=== PATIENT | female | born 1945 | race Caucasian/White ===

== ENCOUNTER 2016-06-15 16:39 | Emergency (ER) | payer MEDICARE ==
[2016-06-15 17:44] VITALS: BP 163/94
--- NOTE | 2016-06-15 19:11 | ED ---
GI/ HPI - HPI Summary HPI Summary: 71 female presents with daughter with complaints of urinary frequency, burning and urgency that she has dealt with chronically however has worsened over the past 3 days. Patient also deals with urinary incontinence chronically. Patient suffers from frequent UTI's and is seen by Dr Leone. She states Macrobid is usually the medication that seems to help clear the infection. She tried making an appointment with Dr Leone today however she was unable to be seen so was told to come here. Denies any visualized blood in urine or stool. Denies nausea , fever/chills, flank pain, abdominal pain and headache. Has taken Azo OTC tablets for pain which have helped her. Has been drinking plenty of fluids. Denies vaginal symptoms and discharge. States she was unable to shower frequently due to dry hair and skin and a broken shower head and believes it may have caused this. PMHx significant for UTI's, kidney problems and rheumatoid arthritis. - History of Current Complaint Chief Complaint: EDUrogenitalProblems Time Seen by Provider: 06/15/16 18:33 Stated Complaint: RECURRENT UTI'S-SENT BY DR STEPHEN Hx Obtained From: Patient, Family/Model Maker Scale - daughter Onset/Duration: Started Days Ago, Worse Since Timing: Constant Severity: Moderate Current Severity: Moderate Pain Intensity: 0 Pain Characteristics: Burning Associated Signs and Symptoms: Positive: UTI Symptoms. Negative: Nausea, Vomiting, Blood w/Stool, Fever, Hematuria, Flank Pain, Lightheadedness Aggravating Factor(s): Voiding, Urination Alleviating Factor(s): OTC Analgesics - Allergy/Home Medications Allergies/Adverse Reactions: Allergies Allergy/AdvReac Type Severity Reaction Status Date / Time Acetaminophen [From Vicodin] Allergy Unknown Verified 04/26/15 13:52 Reaction Details Amoxicillin [From Augmentin] Allergy Unknown Verified 04/26/15 13:52 Reaction Details Carbamazepine [From Tegretol] Allergy Unknown Verified 04/26/15 13:52 Reaction Details Clavulanic Acid Allergy Unknown Verified 04/26/15 13:52 [From Augmentin] Reaction Details Erythromycin Allergy Unknown Verified 04/26/15 13:52 Reaction Details Fluphenazine [From Prolixin] Allergy Unknown Verified 04/26/15 13:52 Reaction Details Haloperidol Allergy Unknown Verified 04/26/15 13:52 Reaction Details Hydrocodone [From Vicodin] Allergy Unknown Verified 04/26/15 13:52 Reaction Details Lamotrigine [From Lamictal] Allergy Unknown Verified 04/26/15 13:52 Reaction Details Morphine Allergy Unknown Verified 04/26/15 13:52 Reaction Details Oxcarbazepine Allergy Unknown Verified 04/26/15 13:52 [From Trileptal] Reaction Details Penicillins Allergy Unknown Verified 04/26/15 13:52 Reaction Details Phenytoin [From Dilantin] Allergy Unknown Verified 04/26/15 13:52 Reaction Details Quetiapine [From Seroquel] Allergy See Comment Verified 04/26/15 13:52 Sulfamethoxazole Allergy Unknown Verified 04/26/15 13:52 w/Trimethoprim Reaction [From Bactrim] Details Thiothixene [From Navane] Allergy Unknown Verified 04/26/15 13:52 Reaction Details Cortisone Allergy Unknown Unknown Uncoded 04/26/15 13:52 Reaction Details [place] Allergy Vomiting Uncoded 04/26/15 13:52 Phenytoin Allergy Unknown Uncoded 04/26/15 13:52 Reaction Details PMH/Surg Hx/FS Hx/Imm Hx Endocrine/Hematology History: Reports: Hx Thyroid Disease - Hypothyroid Denies: Hx Diabetes Cardiovascular History: Reports: Hx Hypertension - ON MEDS Denies: Hx Pacemaker/ICD Respiratory History: Denies: Hx Asthma, Hx Chronic Obstructive Pulmonary Disease (COPD) GI History: Denies: Hx Ulcer History: Reports: Other Problems/Disorders - urinary tract infections Denies: Hx Dialysis, Hx Renal Disease Sensory History: Denies: Hx Hearing Aid Psychiatric History: Denies: Hx Panic Disorder - Surgical History Surgery Procedure, Year, and Place: Left hip replacement 2003, Bilateral knee replacements 2006; TUBAL LIGATION Infectious Disease History: No Infectious Disease History: Denies: Hx Hepatitis, Hx Human Immunodeficiency Virus (HIV), History Other Infectious Disease, Traveled Outside the [place] in Last 30 Days - Family History Known Family History: Positive: Cardiac Disease - Social History Alcohol Use: None Substance Use Type: Reports: None Smoking Status (MU): Never Smoked Tobacco Review of Systems Constitutional: Negative Cardiovascular: Negative Respiratory: Negative Gastrointestinal: Negative Positive: burning, dysuria, frequency, incontinence, pain, urgency Musculoskeletal: Negative Skin: Negative Neurological: Negative Psychological: Normal All Other Systems Reviewed And Are Negative: Yes Physical Exam Triage Information Reviewed: Yes Vital Signs On Initial Exam: Initial Vitals Temp Pulse Resp BP Pulse Ox 96.9 F 88 16 155/94 97 06/15/16 16:40 06/15/16 16:40 06/15/16 16:40 06/15/16 16:40 06/15/16 16:40 Told by patient and daughter BP is usually elevated when at doctors office, re- checked and in a normal range. compared to previous. afebrile and non-tachy. Vital Signs Reviewed: Yes Appearance: Positive: Well-Appearing, No Pain Distress, Well-Nourished Skin: Positive: Warm, Skin Color Reflects Adequate Perfusion, Dry Head/Face: Positive: Normal Head/Face Inspection Eyes: Positive: Normal ENT: Positive: Normal ENT inspection, Hearing grossly normal Neck: Positive: Supple, Nontender, No Lymphadenopathy Respiratory/Lung Sounds: Positive: Clear to Auscultation, Breath Sounds Present. Negative: Rales, Rhonchi, Wheezes Cardiovascular: Positive: Normal, RRR, Pulses are Symmetrical in both Upper and Lower Extremities Abdomen Description: Positive: Nontender, No Organomegaly, Soft. Negative: CVA Tenderness (R), CVA Tenderness (L), Distended, Guarding, McBurney's Point Tenderness, Peritoneal Signs Bowel Sounds: Positive: Present Pelvic Exam: Positive: external exam normal - per patient Musculoskeletal: Positive: Normal, Strength/ROM Intact Neurological: Positive: Normal, Sensory/Motor Intact, Alert, Oriented to Person Place, Time Psychiatric: Positive: Normal, Affect/Mood Appropriate Diagnostics - Vital Signs Vital Signs Temp Pulse Resp BP Pulse Ox 06/15/16 17:44 97.8 F 76 16 163/94 99 06/15/16 16:40 96.9 F 88 16 155/94 97 - Laboratory Lab Statement: Any lab studies that have been ordered have been reviewed, and results considered in the medical decision making process. GIGU Course/Dx - Course Course Of Treatment: urinalysis obtained and positive for urinary tract infection. due to PE findings, length of symptoms, chronic history, and normal vital signs patient will be treated for a UTI at this time. does not appear to be pyelonephritis, no further labs were drawn at this time. educated on culture results and if need be the antibiotic will be changed. however given macrobid and pyridium in ED and sent script to take at home. aware of worsening signs and symptoms to watch out for, such as progressing to pyelonephritis. told to keep appointment with dr leone in 2-3weeks to discuss current infection as well as pcp. ibuprofen/tylenol for pain. - Diagnoses Differential Diagnoses - Female: Cystitis, Pyelonephritis, Urinary Tract Infection Provider Diagnoses: History of chronic urinary tract infection, Urinary tract infection Discharge - Discharge Plan Condition: Stable Disposition: HOME Prescriptions: Nitrofurantoin Monohyd Macro [Macrobid] 100 mg PO BID #20 cap Phenazopyridine TAB* [Pyridium 100 mg TAB*] 100 mg PO TID #9 tab Patient Education Materials: Urinary Tract Infection in Women (ED) Referrals: Luciano Barillas MD [Primary Care Provider] - Additional Instructions: Take prescribed antibiotic and pain medication as directed. Recommend taking probiotics in between doses to replenish normal marino. Urine will be cultured and the results will be in the next 3 days to determine if your antibiotic needs to be change or kept the same. Be sure to make an appointment with both your PCP and urologist Dr Leone, for treatment of chronic urologic problems. Continue drinking plenty of fluids.
[2016-06-15 19:24] LABS: Urine Bacteria 1+ (Absent); Urine Bilirubin Negative (Negative); Urine Glucose Negative (Negative); Urine Nitrite Positive (Negative)
[2016-06-15] MEDS ORDERED: Nitrofurantoin Macrocrystals* 100 MG CAP PO ONE (19:30)
[2016-06-15] MEDS ORDERED: Phenazopyridine TAB* 100 MG PO ONE (19:31)
== END 2016-06-15 19:39 | disposition home or self-care (01) ==
LOC: ED 16:39
DX: N39.0 Urinary tract infection, site not specified (principal)
CPT/HCPCS: 81003; 81015; 87077; 87086; 87186; 99281; A9270-GY

== ENCOUNTER 2016-11-12 15:09 | Emergency (ER) | payer MEDICARE ==
[2016-11-12 17:03] VITALS: BP 185/106
--- NOTE | 2016-11-12 17:37 | UC ---
Ariadna Wild Edward, scribed for Jeff Ryan MD on 11/12/16 at 1731 . Complaint Female HPI - HPI Summary HPI Summary: 71 y/o female presents to [facility] c/o gradual onset cramping, burning with urination, and odorous urine lasting one week. The symptoms are not aggravated or alleviated by anything. Denies ABD pain, fevers/chills. PMHx UTI's. - History Of Current Complaint Chief Complaint: UCGU Stated Complaint: POSSIBLE UTI Time Seen by Provider: 11/12/16 17:29 Hx Obtained From: Patient Onset/Duration: Lasting Weeks - 1 week, Still Present Character: Burning Aggravating Factor(s): Urination Associated Signs And Symptoms: Negative: Fever - Allergies/Home Medications Allergies/Adverse Reactions: Allergies Allergy/AdvReac Type Severity Reaction Status Date / Time Acetaminophen [From Vicodin] Allergy Unknown Verified 11/12/16 17:01 Reaction Details Amoxicillin [From Augmentin] Allergy Unknown Verified 11/12/16 17:01 Reaction Details Carbamazepine [From Tegretol] Allergy Unknown Verified 11/12/16 17:01 Reaction Details Clavulanic Acid Allergy Unknown Verified 11/12/16 17:01 [From Augmentin] Reaction Details Erythromycin Allergy Unknown Verified 11/12/16 17:01 Reaction Details Fluphenazine [From Prolixin] Allergy Unknown Verified 11/12/16 17:01 Reaction Details Haloperidol Allergy Unknown Verified 11/12/16 17:01 Reaction Details Hydrocodone [From Vicodin] Allergy Unknown Verified 11/12/16 17:01 Reaction Details Lamotrigine [From Lamictal] Allergy Unknown Verified 11/12/16 17:01 Reaction Details Morphine Allergy Unknown Verified 11/12/16 17:01 Reaction Details Oxcarbazepine Allergy Unknown Verified 11/12/16 17:01 [From Trileptal] Reaction Details Penicillins Allergy Unknown Verified 11/12/16 17:01 Reaction Details Phenytoin [From Dilantin] Allergy Unknown Verified 11/12/16 17:01 Reaction Details Quetiapine [From Seroquel] Allergy See Comment Verified 11/12/16 17:01 Sulfamethoxazole Allergy Unknown Verified 11/12/16 17:01 w/Trimethoprim Reaction [From Bactrim] Details Thiothixene [From Navane] Allergy Unknown Verified 11/12/16 17:01 Reaction Details Cortisone Allergy Unknown Unknown Uncoded 11/12/16 17:01 Reaction Details [place] Allergy Vomiting Uncoded 11/12/16 17:01 Phenytoin Allergy Unknown Uncoded 11/12/16 17:01 Reaction Details Home Medications: Home Medications Azelastine 0.05% (OPHTH)(NF) [Optivar 0.05% (NF)] 1 drop DAILY 11/12/16 [ History Confirmed 11/12/16] Carvedilol TAB* [Coreg TAB*] 1 tab PO DAILY 11/12/16 [History Confirmed 11/12/16 ] Cranberry (Vaccinium Macrocarp [Cranberry] 450 mg PO DAILY 11/12/16 [History Confirmed 11/12/16] Divalproex Sodium [Depakote] 500 mg PO DAILY 11/12/16 [History Confirmed ] Escitalopram Oxalate [Lexapro 20 mg] 20 mg PO DAILY 11/12/16 [History Confirmed 11/12/16] Folic Acid IV* [Folic Acid IV 1 MG*] 1 mg PO DAILY 11/12/16 [History Confirmed 11/12/16] Hyoscyamine TAB* [Anaspaz 0.125 MG TAB*] 0.125 mg PO TID 11/12/16 [History Confirmed 11/12/16] Lansoprazole [Prevacid] 30 mg PO DAILY 11/12/16 [History Confirmed 11/12/16] Levothyroxine TAB* [Synthroid TAB*] 100 mcg PO DAILY 11/12/16 [History Confirmed 11/12/16] Methotrexate TAB* 6 tab PO WEEKLY 11/12/16 [History Confirmed 11/12/16] Simvastatin TAB(NF) [Zocor 20 MG (NF)] 20 mg PO DAILY 11/12/16 [History Confirmed 11/12/16] traZODone TAB* [Desyrel TAB*] 100 mg PO BEDTIME 11/12/16 [History Confirmed ] PMH/Surg Hx/FS Hx/Imm Hx Previously Healthy: No Endocrine History: Thyroid Disease Cardiovascular History: Cardiac Disease, Hypertension GI/ History: Other Other GI/ History: UTI's - Surgical History Surgical History: Yes Surgery Procedure, Year, and Place: Left hip replacement 2003, Bilateral knee replacements 2006; TUBAL LIGATION - Family History Known Family History: Positive: Cardiac Disease - Social History Alcohol Use: None Substance Use Type: None Smoking Status (MU): Never Smoked Tobacco Review of Systems Constitutional: Negative Skin: Negative Eyes: Negative ENT: Negative Respiratory: Negative Cardiovascular: Negative Gastrointestinal: Negative Genitourinary: Dysuria - Burning with urination, Other - Cramping. Odorous urine Motor: Negative Neurovascular: Negative Musculoskeletal: Negative Neurological: Negative Psychological: Negative All Other Systems Reviewed And Are Negative: Yes Physical Exam Triage Information Reviewed: Yes Appearance: Well-Appearing, No Pain Distress Vital Signs: Initial Vital Signs Temp 98.3 F 11/12/16 15:24 Pulse 109 11/12/16 15:24 Resp 12 11/12/16 15:24 BP 151/79 11/12/16 15:24 Pulse Ox 98 11/12/16 15:24 Vital Signs Reviewed: Yes Eye Exam: Normal ENT Exam: Normal Neck: Positive: Supple, Nontender Respiratory: Positive: Lungs clear, Normal breath sounds Cardiovascular: Positive: RRR Abdomen Description: Positive: Other: - Minimal suprapubic tenderness. No rebounding. Negative: CVA Tenderness (R), CVA Tenderness (L) Bowel Sounds: Positive: Present Musculoskeletal Exam: Normal Musculoskeletal: Positive: Strength Intact, ROM Intact Neurological Exam: Normal Psychological: Positive: Age Appropriate Behavior Complaint Female Dx - Course Course Of Treatment: Past medications reviewed on visit. RX MACROBID 100MG PO BID X 10 DAYS - Differential Dx/Diagnosis Provider Diagnoses: UTI Discharge - Discharge Plan Condition: Stable Disposition: HOME Prescriptions: Nitrofurantoin Monohyd Macro [Macrobid] 100 mg PO BID #20 cap Patient Education Materials: Urinary Tract Infection in Women (ED) Referrals: Luciano Barillas MD [Primary Care Provider] - Additional Instructions: FOLLOW UP WITH YOUR DOCTOR. GET RECHECKED FOR ANY WORSENING OF YOUR CONDITION OR QUESTIONS OR CONCERNS. The documentation as recorded by the Ariadna mera Edward accurately reflects the service I personally performed and the decisions made by me, Jeff Ryan MD.
== END 2016-11-12 17:48 | disposition home or self-care (01) ==
LOC: UCEAST 15:09
DX: N39.0 Urinary tract infection, site not specified (principal); E07.9 Disorder of thyroid, unspecified; I10 Essential (primary) hypertension; Z87.440 Personal history of urinary (tract) infections; Z88.3 Allergy status to other anti-infective agents; Z88.5 Allergy status to narcotic agent; Z88.0 Allergy status to penicillin; Z96.642 Presence of left artificial hip joint; Z96.653 Presence of artificial knee joint, bilateral
CPT/HCPCS: 81003; 87077; 87086; 87186; 99212; G0463

== ENCOUNTER 2019-07-05 09:26 | Emergency (ER) | payer MEDICARE ==
--- OUTSIDE RECORDS SUMMARY | 2019-07-05 09:40 | XMS REPORT | Summary of Care ---
:1945 Author Organization [facility] Address [address] [place] [address] Care Team Providers Name Role Phone Cherelle Real MD Primary Care Provider Reason for Visit Reason Comments New Patient Low back/right hip pain. DOI: 06-20-19. Dr. Armenta has patient's records and films of 06-22-19 from [place]. Encounter Details Date Type Department Care Team Description 07/04/2019 Office Visit [facility] - Abner Armenta MD Acute right-sided low [place] [address] back pain without [address] [facility] [address] sciatica (Primary Dx) [place] [address] [place] [address] [phone] Allergies Active Allergy Reactions Severity Noted Date Comments Augmentin Rash 07/09/2003 ringing ears, breaks out into a sweat Bactrim Rash 07/09/2003 Carbamazepine DESKTOP MANAGER Reaction 02/14/2008 seizures Cortisone Rash 07/09/2003 Dilantin Rash 04/07/2009 Erythromycin Rash 07/09/2003 Haloperidol Lactate DESKTOP MANAGER Reaction 02/14/2008 Lamotrigine DESKTOP MANAGER Reaction 02/14/2008 Lamoure Nausea and Vomiting 04/21/2003 Morphine Other 04/07/2009 "doesn't work" Thiothixene 04/21/2003 RIGIDITY Penicillins Rash 07/09/2003 Phenytoin Rash 11/15/2006 SWELLING Fluphenazine Enanthoate 10/01/2003 Feels like she is crawling out of her skin. Prolixin Anxiety 04/21/2003 Oxcarbazepine-Polysorbate DESKTOP MANAGER Reaction 02/22/2013 seizures 80 Hydrocodone-Acetaminophen Hives 10/01/2003 documented as of this encounter (statuses as of 07/04/2019) Medications Medication Sig Dispensed Refills Start Date End Date Status MULTIVITAL PO Take by mouth. 0 Active methotrexate (TREXALL) Take 4 Tabs by 80 Tab 0 03/13/2013 Active 2.5 MG Oral Tab mouth EVERY 7 DAYS. Nystatin [id number] UNIT/GM 1 g by Apply 60 g 4 12/21/2013 Active Apply externally Powder externally route DAILY. Apply to under breasts daily carvedilol (COREG) Take 1 Tab by 90 Tab 4 12/21/2013 Active 3.125 MG Oral Tab mouth DAILY. clotrimazole (LOTRIMIN) Apply under 30 g 0 01/08/2014 Active 1 % Apply externally breast 2 x a day Cream hydrOXYzine HCL Take 1 Tab by 90 Tab 0 01/08/2014 Active (ATARAX) 10 MG Oral Tab mouth THREE TIMES DAILY NEEDED for Itching or anxiety. Incontinence Supply 1 Each by Does 100 Each 5 01/14/2014 Active Disposable Does not not apply route apply Misc NEEDED (incontinence). Size Large levothyroxine Take 1 Tab by 30 Tab 1 01/16/2014 Active (SYNTHROID) 125 MCG mouth BEFORE Oral Tab BREAKFAST. docusate sodium Take 1 Cap by 180 Cap 5 02/26/2014 Active (COLACE) 100 MG Oral mouth TWICE Cap DAILY. trazodone (DESYREL) 50 Take 1 Tab by 90 Tab 3 03/01/2014 Active MG Oral Tab mouth EVERY BEDTIME. escitalopram (LEXAPRO) Take 1 Tab by 90 Tab 3 03/01/2014 Active 10 MG Oral Tab mouth DAILY. simvastatin (ZOCOR) 20 TAKE 1 TAB BY 30 Tab 10 03/08/2014 Active MG Oral Tab MOUTH EVERY BEDTIME. divalproex sodium 2 BY MOUTH AT 60 Tab 2 05/15/2014 Active (DEPAKOTE) 500 MG Oral BEDTIME Tab EC foliC acid 1 MG Oral TAKE 1 TAB BY 30 Tab 4 06/12/2014 Active Tab MOUTH EVERY DAY Cranberry 450 MG Oral 1 TAB BY MOUTH 30 Tab 4 06/24/2014 Active Tab EVERY DAY levothyroxine TAKE 1 TABLET BY 30 Tab 0 07/23/2014 Active (SYNTHROID\\UNITHROID) MOUTH DAILY ON 100 MCG Oral Tab EMPTY STOMACH Lansoprazole 30 MG Oral TAKE 1 CAP BY 30 Cap 0 07/23/2014 Active CAPSULE DELAYED RELEASE MOUTH DAILY. OVERDUE FOR OFFICE VISIT acetaminophen (TYLENOL) Take 500 mg by 0 Active 500 MG Oral Tab mouth EVERY SIX HOURS NEEDED for Pain. Lactobacillus Take by mouth. 0 Active (ACIDOPHILUS PO) duloxetine (CYMBALTA) Take 30 mg by 0 Active 30 MG Oral CAPSULE mouth. ENTERIC COATED PARTICLES Levocetirizine Take by mouth. 0 Active Dihydrochloride 5 MG Oral Tab methotrexate 50 mg/mL Inject within a 0 Active muscle. Omeprazole delayed rel Take 20 mg by 0 Active cap 20 MG Oral CAPSULE mouth. DELAYED RELEASE Cholecalciferol Take by mouth. 0 Active (VITAMIN D3) 25 MCG (1000 UT) Oral Cap Azelastine HCl 0.05 % Place to the 0 Active Ophthalmic Solution external eye. Polyethylene Glycol Take by mouth. 0 Active 3350 (CLEARLAX PO) hyoscyamine (LEVSIN) Take 0.125 mg by 0 Active 0.125 MG Oral Tab mouth EVERY FOUR HOURS NEEDED. LOPERAMIDE HCL PO Take by mouth. 0 Active naproxen (NAPROSYN) 250 Take 250 mg by 0 Active MG Oral Tab mouth TWICE DAILY. documented as of this encounter (statuses as of 07/04/2019) Active Problems Problem Noted Date S/P TKR (total knee replacement) 12/21/2013 Overview: Bilateral 2003 and 2006 Osteoarthritis, hip, bilateral 12/21/2013 Overview: S/p total hip replacement Mixed hyperlipidemia 12/21/2013 Bipolar 1 disorder, mixed 06/25/2013 Rheumatoid arthritis(714.0) 02/23/2013 Overview: Progressive and severe [address] Piper 2012 Hypothyroidism 12/05/2006 Hypertension 12/05/2006 documented as of this encounter (statuses as of 07/04/2019) Resolved Problems Problem Noted Date Resolved Date Bipolar disorder, now depressed 02/23/2013 12/21/2013 Headaches 09/10/2008 12/21/2013 Chronic sinusitis 09/06/2008 12/21/2013 Pain in joint, lower leg 05/22/2003 02/23/2013 Other specified disorders of pelvic joint 05/22/2003 02/23/2013 Depressive Disorder, not Elsewhere Classified 04/21/2003 02/23/2013 documented as of this encounter (statuses as of 07/04/2019) Immunizations Name Administration Dates Next Due Influenza Vaccine High Dose 12/21/2013 PNEUMOCOCCAL POLYSACCHARIDE VACCINE 12/21/2013 documented as of this encounter Social History Tobacco Use Types Packs/Day Years Used Date Never Smoker Smokeless Tobacco: Never Used Alcohol Use Drinks/Week oz/Week Comments No Sex Assigned at Date Recorded Not on file COVID-19 Exposure Response Date Recorded In the last month, have you been in contact with No / Unsure 07/02/2019 12:35 PM EDT someone who was confirmed or suspected to have Coronavirus / COVID-19? documented as of this encounter Last Filed Vital Signs Vital Sign Reading Time Taken Comments Blood Pressure - - Pulse - - Temperature - - Respiratory Rate - - Oxygen Saturation - - Inhaled Oxygen Concentration - - Weight 90.7 kg (200 lb) 07/04/2019 9:34 AM EDT Height 167.6 cm (5' 6") 07/04/2019 9:34 AM EDT Body Mass Index 32.28 07/04/2019 9:34 AM EDT documented in this encounter Progress Notes Abner Armenta MD - 07/04/2019 10:00 AM EDT Name: Tammie Ann : 1945 Date of Service: 07/04/2019 Chief Complaint Patient presents with ? New Patient Low back/right hip pain. DOI: 06-20-19. Dr. Armenta has patient's records and films of 06-22-19 from [place]. 74-year-old woman with approximately 5-week history of right-sided low back pain. Multiple medical problems. Patient did fall but this was about a week or so before the pain started. Pain is in the right low back. No help from prednisone or anti-inflammatories or Tylenol. Pain is severe. No sciatic type pain. No previous history of pain. Patient has not seen her primary care doctor about thisand cannot rule out internal etiology. I reviewed x-ray reports done from portable x-ray. X-rays of the lumbosacral spine showed old L1 compression fracture. This was confirmed on MRI but MRI did not show any evidence of acute compression fracture. Pelvic x-ray showed bilateral DJD of hips. Patient related to me that she did see the results of the hip x-rays and she feels that the pain is from her hip but she does not have groin pain or lateral hip pain. I spoke with patient's daughter who also provided me some history. Main problem is that because of virus (there is significant risk for patient coming into office for selective injections such as hip injection or facet injection or possiblySI injection under fluoroscopy. Physical exam shows a healthy appearing woman who does not appear to be in acute distress. Alert and oriented. Patient points to the right low back as area of pain. This is in the center the of the right PSIS. Rest of exam deferred since this is done as a telemedicine visit. Impression: Pain may be from internal etiology and not orthopedic. Have suggested to patient's daughter that she try to arrange for a visit by . If internal causes ruled out, we will have todecide the risks versus benefits of selective injections under fluoroscopy and patient's daughter Kelli will call me back. She will also find out if physical therapy is available at the facility at this time. No diagnosis found. Author: Abner Armenta MD 07/04/2019 10:22 This record contains sections created with voice recognition software. It has been electronically signed. A reasonable attempt at proofreading has been made. Please call with any questions or corrections. documented in this encounter Plan of Treatment Date Type Specialty Care Team Description 07/12/2019 Office Visit Urology [place] [address] Health Maintenance Due Date Last Done Comments CT Colonography 1945 Cologuard 1945 Colonoscopy 1945 Colorectal Cancer Screening 1945 FIT/FOBT 1945 MEDICARE ANNUAL WELLNESS 1945 VISIT Sigmoidoscopy 1945 DTaP/Tdap/Td Vaccines (1 - 1958 Tdap) DEPRESSION SCREENING 1959 MAMMOGRAM (SCREENING) 1987 ZOSTER IMMUNIZATION SERIES 1997 (1 of 2) LIPID DISORDER SCREENING 03/08/2009 03/08/2008, 11/13/2002, 03/29/2001, Additional history exists FALL RISK ASSESSMENT 2012 OSTEOPOROSIS SCREENING 2012 PNEUMOCOCCAL 65+YRS (2 of 2 12/21/2014 12/21/2013 - PCV13) INFLUENZA VACCINE (Season 11/20/2019 12/21/2013 Ended) HIV SCREENING Completed 08/08/2003 HEPATITIS C SCREENING Completed 01/08/2014 HEPATITIS A IMMUNIZATION Aged Out No longer eligible SERIES based on patient's age to complete this topic HPV IMMUNIZATION SERIES Aged Out No longer eligible based on patient's age to complete this topic MENINGOCOCCAL VACCINE IMM Aged Out No longer eligible based on patient's age to complete this topic documented as of this encounter Results Not on filedocumented in this encounter Visit Diagnoses Diagnosis Acute right-sided low back pain without sciatica documented in this encounter Insurance Payer Benefit Plan / Subscriber ID Effective Dates Phone Address Type Group AETNA MEDICARE AETNA MEDICARE [id number] 2019-Present [employer] ADVANTAGE ADVANTAGE documented as of this encounter
--- OUTSIDE RECORDS SUMMARY | 2019-07-05 09:41 | XMS REPORT | Continuity of Care Document ---
:1945 External Reference #:[id number] Author Name Gurvinder Chapman M.D. 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 - Adult Health Care Team Information [employer] Problems Active Problems Provider Date Essential hypertension Kendell Lazo M.D. Onset: 02/27/2014 Hypothyroidism Kendell Lazo M.D. Onset: 02/27/2014 Gastroesophageal reflux disease Kendell Lazo M.D. Onset: 02/27/2014 Rheumatoid arthritis Everett Brady M.D. Onset: 01/08/2014 Muscle, ligament and fascia disorders Everett Brady M.D. 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 Dover. Allergic rhinitis Jeyson Walker M.D. Onset: 11/24/2016 Social History Type Date Description Comments Sex Unknown Tobacco Use Start: Unknown Never Smoked Cigarettes Smoking Status Reviewed: 05/02/19 Never Smoked Cigarettes ETOH Use 11/11/2017 Denies alcohol use Tobacco Use Start: Unknown Patient has never smoked Recreational Drug Use Never Used Drugs Exercise Type/Frequency Walks daily Allergies, Adverse Reactions, Alerts Active Allergies Reaction Severity Comments Date Carbamazepine REVENUE RESEARCH ANALYST/ seizures Severe 12/31/2013 Cortisone Urticaria Moderate 12/31/2013 Dilantin Urticaria Moderate 12/31/2013 Erythromycin Urticaria Moderate 12/31/2013 Haloperidol REVENUE RESEARCH ANALYST reaction Severe 12/31/2013 Lamotrigine REVENUE RESEARCH ANALYST reaction Severe 12/31/2013 [place] Nausea and Vomiting Moderate 12/31/2013 Morphine "doesn't work" Mild 12/31/2013 Navane rigidity Moderate 12/31/2013 Phenytoin Urticaria, swelling Severe 12/31/2013 Prolixin anxiety Moderate 12/31/2013 Trileptal seizures Severe 12/31/2013 Vicodin Urticaria Moderate 12/31/2013 Seroquel unknown Moderate 01/09/2014 Medications Active Medications SIG Qnty Indications Ordering Date Provider Cool N Heat Patch apply daily for 12 90units Gurvinder Chapman, 06/22/2019 Extra Strength hours to painful hip M.D. 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 mouth daily ongoing (avoid at same time as Levothyroxine) Vitamin D Take 1 Capsule By 180tabs Silvia Bah, 07/27/2018 (Cholecalciferol) Mouth Two Times MD Daily In 1000Unit Tablets Fall/Winter, Take 1 Per Day In Spring/Summer----prashant jim appointment for refills Methotrexate Sodium inject 0.6 20units M06.9 Gurvinder Chapman, 07/27/2018 (PF) milliliters M.D. 50mg/2ML Solution subcutaneously (under the skin) every week as directed - discard any remainder after use M06.09 BD 1ML Tuberculin use for weekly 12units Gurvinder Chapman, 07/27/2018 Syringe/Safetyglide TB injection of M.D. Needle 27GX1/2" methotrexate 27G X 1/2" 1 ML Misc Certavite Take 1 Tablet By 90tabs Z00.00 Luciano Gavin 04/20/2018 Senior/Antioxidant Mouth Every Day Dimitrios Barillas M.D.,FACP Tablets Acetaminophen 1 tab twice a day 120tabs Luciano Gavin 01/16/2018 500mg Tablets standing Beena Barillas,FACP Duloxetine HCL 1 Capsule By Mouth 60caps F31.9 Luciano Gavin 11/11/[address] Part Two Times Daily Beena Barillas,FACP Levocetirizine take 1 tablet by 90tabs Luciano Gavin 10/04/2017 Dihydrochloride mouth every day N[place]is, 5mg Tablets Hermila.DKaterin,FACP Gricelda Allergy 1 by mouth every 90tabs J30.9 Luciano Gavin 06/14/2017 180mg Tablets day Beena Barillas,FACP Probiotic & Acidophilus take one 60caps Gurvinder Chapman, 05/04/2017 Formula Extra Strength capsule/tablet M.DKaterin Capsules daily by mouth Lansoprazole Take 1 Capsule By 30caps Jeyson 03/07/[address] Mouth Every Day 1 [place], Hour Before M.D. Breakfast Systane Preservative Free apply twice daily 60units H04.123 Gurvinder Chapman, 12/23/2016 for dry eyes M.D. 0.4-0.3% Solution Azelastine HCL Instill 1 Drop Into 6units Jeyson 09/03/2016 (Ophthalmic) Both Eyes Every Day Pachikara, 0.05% Solution as Needed M.D. Loperamide HCL 2 tabs 1st loose 14tabs R19.7 Luciano Gavin 05/17/2016 2mg Tablets stool, then 1 tab [place], per loose stool as M.Romaine,FACP needed diarrhea Trazodone HCL take 1 tablet by 90tabs G47.00 Luciano Gavin 11/12/2015 100mg Tablets mouth at bedtime Beena Barillas,FACP F31.9 Depend Underwear For or generic equiv, dx 96units Ministerio Olson NP 2015 Wom Men X-Large incontinence as Maximum Absorbency needed Misc Miralax 17 gm every day as 10units Ministerio Olson NP 06/05/2015 3350NF Packet needed Cranberry take 1 tablet by 30tabs Z00.00 Jenna Roque, 11/04/2014 450mg Tablets mouth every day N.P. Zyrtec Allergy 1 by mouth daily for 30caps L99 Luciano Gavin 08/30/2014 10mg 3-5 days, as needed Beena Barillas,FACP Capsules allergies Hyoscyamine Sulfate take 1 tablet by 10tabs Helene 08/01/2014 mouth three times CRICKET Castillo 0.125mg Tablets daily as needed for colic pain Levothyroxine Sodium take 1 tablet by 90tabs E03.9 Luciano Gavin 02/27/2014 mouth every day on an Beena Barillas,FACP 100mcg Tablets empty stomach Colace take 1 capsule by 60caps K59.09 Ministerio Olson NP 02/20/2014 100mg Capsules mouth two times daily Z00.00 Folic Acid take 1 tablet by 90tabs Z00.00 Zayra Fong, 1mg Tablets mouth every day M.D. Carvedilol Take 1 Tablet By 90tabs I10 Jeyson Walker, 3.125mg Mouth Every Day M.D. Tablets Divalproex Sodium Take 2 Tablets By 14tabs F31.9 Luciano Gavin [place], 500mg Mouth AT Bedtime MAleyda,FACP Tablets DR Simvastatin take 1 tablet by 7tabs E78.4 Luciano Barillas, 20mg Tablets mouth every day at M.D.,FACP bedtime Immunizations CPT Code Status Date Vaccine Lot # [id number] Given 12/14/2016 Influenza Virus Vaccine, Quadrivalent, Split, Preservative Free 08605 Given 11/10/2015 Pneumonia Vaccine [id number] Given 11/10/2015 Tdap - Tetanus/Diptheria/Acellular Pertussis [id number] Given 01/08/2015 Fluzone Vaccine [id number] Given 11/07/2014 Pneumococcal Conjugate Vaccine 13 Valent For [id number] Intramuscular Use Vital Signs Date Vital Result Comment 05/02/2019 3:42pm Height 65 inches 5'5" Weight 206.38 lb Heart Rate 79 /min BP Systolic Sitting 142 mmHg BP Diastolic Sitting 80 mmHg O2 % BldC Oximetry 98 % BMI (Body Mass Index) 34.3 kg/m2 10/31/2018 4:06pm Height 65 inches 5'5" Weight 212.00 lb Heart Rate 74 /min BP Systolic Sitting 126 mmHg BP Diastolic Sitting 80 mmHg Pain Level 7 O2 % BldC Oximetry 96 % BMI (Body Mass Index) 35.3 kg/m2 Results Test Acquired Date Facility Test Result H/L Range Note Laboratory test 05/01/2019 [facility] Erythrocyte Sed 10 mm/Hr Normal 0-29 1, [address] [place] [address] [phone] C Reactive Protein 9.81 mg/L High <8.01 3 CBC W/Auto 05/01/2019 [facility] White Blood 8.2 10^3/uL Normal 3.5-10.[address] [place] [address] [phone] Red Blood Count 4.36 10^6/uL Normal 3.70-4.87 Hemoglobin 13.0 g/dL Normal 12.0-16.0 Hematocrit 39 % Normal 35-47 Mean Corpuscular Volume 89 fL Normal 80-97 Mean Corpuscular Hemoglobin 30 pg Normal 27-31 Mean Corpuscular HGB Conc 34 g/dL Normal 31-36 Red Cell Distribution Width 18 % High 10-15 Abs Neutrophils 4.2 10^3/uL Normal 1.5-7.7 Abs Lymphocytes 2.6 10^3/uL Normal 1.0-4.8 Abs Monocytes 1.2 10^3/uL High 0-0.8 Abs Eosinophils 0.2 10^3/uL Normal 0-0.6 Abs Basophils 0.1 10^3/uL Normal 0-0.2 Abs Nucleated RBC 0.0 10^3/uL Granulocyte % 51.5 % Lymphocyte % 31.3 % Monocyte % 14.5 % Eosinophil % 2.1 % Basophil % 0.6 % Nucleated Red Blood Cells % 0.0 Platelet Count 235 10^3/uL Normal 150-450 Mean Platelet Volume 8.4 fL Normal 7.4-10.4 CMP Panel 05/01/2019 [facility] Sodium 138 mmol/L Normal 135- [address] [place] [address] [phone] Potassium 4.2 mmol/L Normal 3.5-5.0 Chloride 102 mmol/L Normal 101-111 Co2 Carbon Dioxide 28 mmol/L Normal 22-32 Anion Gap 8 mmol/L Normal 2-11 Glucose 78 mg/dL Normal 70-100 Blood Urea Nitrogen 17 mg/dL Normal 6-24 Creatinine 0.72 mg/dL Normal 0.51-0.95 BUN/Creatinine Ratio 23.6 High 8-20 Calcium 9.1 mg/dL Normal 8.6-10.3 Total Protein 6.8 g/dL Normal 6.4-8.9 Albumin 4.1 g/dL Normal 3.2-5.2 Globulin 2.7 g/dL Normal 2-4 Albumin/Globulin Ratio 1.5 Normal 1-3 Total Bilirubin 0.40 mg/dL Normal 0.2-1.0 Alkaline Phosphatase 59 U/L Normal 34-104 Alt 10 U/L Normal 7-52 Ast 17 U/L Normal 13-39 Egfr Non- 79.6 >60 Egfr 96.3 >60 4 Laboratory test 01/30/2019 [facility] C Reactive 6.72 mg/L Normal <8.01 5, [address] [place] [address] [phone] Erythrocyte Sed Rate 10 mm/Hr Normal 0-29 7 CBC W/Auto 01/30/2019 [facility] White Blood 7.4 10^3/uL Normal 3.5-10.[address] [place] [address] [phone] Red Blood Count 4.44 10^6/uL Normal 3.70-4.87 Hemoglobin 13.2 g/dL Normal 12.0-16.0 Hematocrit 39 % Normal 35-47 Mean Corpuscular Volume 88 fL Normal 80-97 Mean Corpuscular Hemoglobin 30 pg Normal 27-31 Mean Corpuscular HGB Conc 34 g/dL Normal 31-36 Red Cell Distribution Width 18 % High 10-15 Platelet Count 224 10^3/uL Normal 150-450 Mean Platelet Volume 7.7 fL Normal 7.4-10.4 Abs Neutrophils 3.4 10^3/uL Normal 1.5-7.7 Abs Lymphocytes 2.8 10^3/uL Normal 1.0-4.8 Abs Monocytes 1.0 10^3/uL High 0-0.8 Abs Eosinophils 0.2 10^3/uL Normal 0-0.6 Abs Basophils 0.1 10^3/uL Normal 0-0.2 Abs Nucleated RBC 0.0 10^3/uL Granulocyte % 45.9 % Lymphocyte % 38.2 % Monocyte % 12.8 % Eosinophil % 2.3 % Basophil % 0.8 % Nucleated Red Blood Cells % 0.0 CMP Panel 01/30/2019 [facility] Sodium 137 mmol/L Normal 135- [address] [place], [place] [id number] [phone] Potassium 4.6 mmol/L Normal 3.5-5.0 Chloride 101 mmol/L Normal 101-111 Co2 Carbon Dioxide 29 mmol/L Normal 22-32 Anion Gap 7 mmol/L Normal 2-11 Glucose 77 mg/dL Normal 70-100 Blood Urea Nitrogen 15 mg/dL Normal 6-24 Creatinine 0.71 mg/dL Normal 0.51-0.95 BUN/Creatinine Ratio 21.1 High 8-20 Calcium 9.3 mg/dL Normal 8.6-10.3 Total Protein 6.3 g/dL Low 6.4-8.9 Albumin 3.8 g/dL Normal 3.2-5.2 Globulin 2.5 g/dL Normal 2-4 Albumin/Globulin Ratio 1.5 Normal 1-3 Total Bilirubin 0.30 mg/dL Normal 0.2-1.0 Alkaline Phosphatase 51 U/L Normal 34-104 Alt 7 U/L Normal 7-52 Ast 14 U/L Normal 13-39 Egfr Non- 81.2 >60 Egfr 98.2 >60 8 Comp Metabolic 01/16/2019 [facility] Sodium 138 mmol/L Normal 135-145 [address] [place] [address] [phone] Potassium 4.3 mmol/L Normal 3.5-5.0 Chloride 100 mmol/L Low 101-111 Co2 Carbon Dioxide 31 mmol/L Normal 22-32 Anion Gap 7 mmol/L Normal 2-11 Glucose 80 mg/dL Normal 70-100 Blood Urea Nitrogen 11 mg/dL Normal 6-24 Creatinine 0.74 mg/dL Normal 0.51-0.95 BUN/Creatinine Ratio 14.9 Normal 8-20 Calcium 9.1 mg/dL Normal 8.6-10.3 Total Protein 6.1 g/dL Low 6.4-8.9 Albumin 3.7 g/dL Normal 3.2-5.2 Globulin 2.4 g/dL Normal 2-4 Albumin/Globulin Ratio 1.5 Normal 1-3 Total Bilirubin 0.30 mg/dL Normal 0.2-1.0 Alkaline Phosphatase 47 U/L Normal 34-104 Alt 7 U/L Normal 7-52 Ast 13 U/L Normal 13-39 Egfr Non- 77.4 >60 Egfr 93.6 >60 10 CBC No Diff 01/16/2019 [facility] White Blood 6.7 10^3/uL Normal 3.5-10.[address] [place] [address] [phone] Red Blood Count 4.39 10^6/uL Normal 3.70-4.87 Hemoglobin 13.1 g/dL Normal 12.0-16.0 Hematocrit 40 % Normal 35-47 Mean Corpuscular Volume 90 fL Normal 80-97 Mean Corpuscular Hemoglobin 30 pg Normal 27-31 Mean Corpuscular HGB Conc 33 g/dL Normal 31-36 Red Cell Distribution Width 17 % High 10-15 Platelet Count 205 10^3/uL Normal 150-450 Mean Platelet Volume 8.1 fL Normal 7.4-10.4 Laboratory test 01/16/2019 [facility] Erythrocyte Sed 9 mm/Hr Normal 0-29 [address] [place] [address] [phone] C-Peptide 2.0 ng/mL 1.1 - 4.4 12 1 [id number] 2 [id number] 3 [id number] 4 Because ethnic data is not always readily available, this report includes an eGFR for both -Americans and non- Americans. The National Kidney Disease Education Program (NKDEP) does not endorse the use of the MDRD equation for patients that are not between the ages of 18 and 70, are , have extremes of body size, muscle mass, or nutritional status, or are non- or non-. According to the National Kidney Foundation, irrespective of diagnosis, the stage of the disease is based on the level of kidney function: Stage Description GFR(mL/min/1.73 m(2)) 1 Kidney damage with normal or decreased GFR 90 2 Kidney damage with mild decrease in GFR 60-89 3 Moderate decrease in GFR 30-59 4 Severe decrease in GFR 15-29 5 Kidney failure <15 (or dialysis) 5 [id number] 6 [id number] 7 [id number] 8 Because ethnic data is not always readily available, this report includes an eGFR for both -Americans and non- Americans. The National Kidney Disease Education Program (NKDEP) does not endorse the use of the MDRD equation for patients that are not between the ages of 18 and 70, are , have extremes of body size, muscle mass, or nutritional status, or are non- or non-. According to the National Kidney Foundation, irrespective of diagnosis, the stage of the disease is based on the level of kidney function: Stage Description GFR(mL/min/1.73 m(2)) 1 Kidney damage with normal or decreased GFR 90 2 Kidney damage with mild decrease in GFR 60-89 3 Moderate decrease in GFR 30-59 4 Severe decrease in GFR 15-29 5 Kidney failure <15 (or dialysis) 9 [id number] 10 Because ethnic data is not always readily available, this report includes an eGFR for both -Americans and non- Americans. The National Kidney Disease Education Program (NKDEP) does not endorse the use of the MDRD equation for patients that are not between the ages of 18 and 70, are , have extremes of body size, muscle mass, or nutritional status, or are non- or non-. According to the National Kidney Foundation, irrespective of diagnosis, the stage of the disease is based on the level of kidney function: Stage Description GFR(mL/min/1.73 m(2)) 1 Kidney damage with normal or decreased GFR 90 2 Kidney damage with mild decrease in GFR 60-89 3 Moderate decrease in GFR 30-59 4 Severe decrease in GFR 15-29 5 Kidney failure <15 (or dialysis) 11 [id number] 12 Test Performed by: [facility] [address] [place] [address] Roaster Helper: Jeff Ashby M.D. Ph.D.; CLIA# [id number] Procedures Date Code Description Status 02/27/2013 [id number] Mammogram Completed 08/28/1996 [id number] Colonoscopy Completed Medical Devices Description No Information Available Encounters Type Date Location Provider Dx Diagnosis Office Visit 06/22/2019 Rheumatology Services Gurvinder Chapman M54.5 Low back pain 11:00a [facility] M25.559 Pain in unspecified hip M06.09 Rheumatoid arthritis w/o rheumatoid factor, multiple sites Z79.899 Other residential (current) drug therapy Office Visit 05/02/2019 3:40p Rheumatology Gurvinder M06.09 [facility] M.D. arthritis w/o rheumatoid factor, multiple sites M17.9 Osteoarthritis of knee, unspecified Z79.899 Other residential (current) drug therapy G60.8 Other hereditary and idiopathic neuropathies Assessments Date Code Description Provider 06/22/2019 M54.5 Low back pain Gurvinder Chapman M.D. 06/22/2019 M25.559 Pain in unspecified hip Gurvinder Chapman M.D. 06/22/2019 M06.09 Rheumatoid arthritis without rheumatoid Gurvinder Chapman M.D. factor, multiple sit 06/22/2019 Z79.899 Other residential (current) drug therapy Gurvinder Chapman M.D. 05/02/2019 M06.09 Rheumatoid arthritis without rheumatoid Beena Gracia, multiple sit 05/02/2019 M17.9 Osteoarthritis of knee, unspecified Gurvinder Chapman M.D. 05/02/2019 Z79.899 Other residential (current) drug therapy Gurvinder Chapman M.D. 05/02/2019 G60.8 Other hereditary and idiopathic neuropathies Gurvinder Chapman M.D. Plan of Treatment Future Appointment(s):08/30/2019 3:00 pm - Gurvinder Chapman M.D. 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
--- OUTSIDE RECORDS SUMMARY | 2019-07-05 09:41 | XMS REPORT | Summary of Care ---
:1945 Author Organization [facility] Address 1 [facility] [place] [address] Care Team Providers Name Role Phone Cherelle Real MD Primary Care Provider Reason for Visit Reason Comments New Patient Bilateral knee pain. DOI: 2 yrs. Bilateral knee replacement 2006 [facility]. Patient has been going to exercise class at [place]. Hx of RA. Patient has been doing a lot of walking lately and bilateral knee pain has increased. (Routine) Status Reason Specialty Diagnoses / Referred By Referred To Procedures Contact Contact No [facility] Diagnoses Pain in unspecified knee Cherelle Real Krause, Norman, Required MD MD [address] [facility] [address] [address] [place] [address] Phone: Fax: Encounter Details Date Type Department Care Team Description 05/07/2019 Office Visit [facility] - Abner Armenta MD Status post total [address] bilateral knee 10 [facility] [address] replacement ([place] [address] [place] [address] Dx) [place] [address] [phone] Allergies Active Allergy Reactions Severity Noted Date Comments Augmentin Rash 07/09/2003 ringing ears, breaks out into a sweat Bactrim Rash 07/09/2003 Carbamazepine TERRITORY SERVICE REPRESENTATIVE Reaction 02/14/2008 seizures Cortisone Rash 07/09/2003 Dilantin Rash 04/07/2009 Erythromycin Rash 07/09/2003 Haloperidol Lactate TERRITORY SERVICE REPRESENTATIVE Reaction 02/14/2008 Lamotrigine TERRITORY SERVICE REPRESENTATIVE Reaction 02/14/2008 [place] Nausea and Vomiting 04/21/2003 Morphine Other 04/07/2009 "doesn't work" Thiothixene 04/21/2003 RIGIDITY Penicillins Rash 07/09/2003 Phenytoin Rash 11/15/2006 SWELLING Fluphenazine Enanthoate 10/01/2003 Feels like she is crawling out of her skin. Prolixin Anxiety 04/21/2003 Oxcarbazepine-Polysorbate TERRITORY SERVICE REPRESENTATIVE Reaction 02/22/2013 seizures 80 Hydrocodone-Acetaminophen Hives 10/01/2003 documented as of this encounter (statuses as of 05/07/2019) Medications Medication Sig Dispensed Refills Start Date End Date Status MULTIVITAL PO Take by mouth. 0 Active methotrexate (TREXALL) Take 4 Tabs by 80 Tab 0 03/13/2013 Active 2.5 MG Oral Tab mouth EVERY 7 DAYS. Nystatin 322499 1 g by Apply 60 g 4 12/21/2013 Active UNIT/GM Apply externally route externally Powder DAILY. Apply to under breasts daily carvedilol (COREG) Take 1 Tab by 90 Tab 4 12/21/2013 Active 3.125 MG Oral Tab mouth DAILY. clotrimazole Apply under breast 30 g 0 01/08/2014 Active (LOTRIMIN) 1 % Apply 2 x a day externally Cream hydrOXYzine HCL Take 1 Tab by 90 Tab 0 01/08/2014 Active (ATARAX) 10 MG Oral mouth THREE TIMES Tab DAILY NEEDED for Itching or anxiety. Incontinence Supply 1 Each by Does not 100 Each 5 01/14/2014 Active Disposable Does not apply route apply Misc NEEDED (incontinence). Size Large levothyroxine Take 1 Tab by 30 Tab 1 01/16/2014 Active (SYNTHROID) 125 MCG mouth BEFORE Oral Tab BREAKFAST. docusate sodium Take 1 Cap by 180 Cap 5 02/26/2014 Active (COLACE) 100 MG Oral mouth TWICE DAILY. Cap trazodone (DESYREL) 50 Take 1 Tab by [...] Oral Tab EMPTY STOMACH Lansoprazole 30 MG TAKE 1 CAP BY 30 Cap 0 07/23/2014 Active Oral CAPSULE DELAYED MOUTH DAILY. RELEASE OVERDUE FOR OFFICE VISIT documented as of this encounter (statuses as of 05/07/2019) Active Problems Problem Noted Date S/P TKR (total knee replacement) 12/21/2013 Overview: Bilateral 2003 and 2006 Osteoarthritis, hip, bilateral 12/21/2013 Overview: S/p total hip replacement Mixed hyperlipidemia 12/21/2013 Bipolar 1 disorder, mixed 06/25/2013 Rheumatoid arthritis(714.0) 02/23/2013 Overview: Progressive and severe [address] Piper 2012 Hypothyroidism 12/05/2006 Hypertension 12/05/2006 documented as of this encounter (statuses as of 05/07/2019) Resolved Problems Problem Noted Date Resolved Date Bipolar disorder, now depressed 02/23/2013 12/21/2013 Headaches 09/10/2008 12/21/2013 Chronic sinusitis 09/06/2008 12/21/2013 Pain in joint, lower leg 05/22/2003 02/23/2013 Other specified disorders of pelvic joint 05/22/2003 02/23/2013 Depressive Disorder, not Elsewhere Classified 04/21/2003 02/23/2013 documented as of this encounter (statuses as of 05/07/2019) Immunizations Name Administration Dates Next Due Influenza Vaccine High Dose 12/21/2013 PNEUMOCOCCAL POLYSACCHARIDE VACCINE 12/21/2013 documented as of this encounter Social History Tobacco Use Types Packs/Day Years Used Date Never Smoker Smokeless Tobacco: Never Used Alcohol Use Drinks/Week oz/Week Comments No Sex Assigned at Date Recorded Not on file documented as of this encounter Last Filed Vital Signs Vital Sign Reading Time Taken Comments Blood Pressure 151/90 05/07/2019 3:26 PM EST Pulse 80 05/07/2019 3:26 PM EST Temperature - - Respiratory Rate - - Oxygen Saturation - - Inhaled Oxygen Concentration - - Weight 90.7 kg (200 lb) 05/07/2019 3:26 PM EST Height 167.6 cm (5' 6") 05/07/2019 3:26 PM EST Body Mass Index 32.28 05/07/2019 3:26 PM EST documented in this encounter Progress Notes Abner Armenta MD - 05/07/2019 3:00 PM EST Name: Tammie Ann : 1945 Date of Service: 05/07/2019 Referring Provider: Cherelle Real Primary Care Provider: Cherelle Real Chief Complaint Patient presents with ? New Patient Bilateral knee pain. DOI: 2 yrs. Bilateral knee replacement 2006 [facility]. Patient has been going to exercise class at [place]. Hx of RA. Patient has been doing a lot of walking lately and bilateral knee pain has increased. Past Medical History: Diagnosis Date ? Allergic rhinitis ? Bipolar disorder (HCC) ? Chronic sinusitis ? Chronic sinusitis ? Diverticulosis ? Generalized convulsive epilepsy 2003 ? GERD (gastroesophageal reflux disease) ? Headache(784.0) ? Hypertension ? Hypothyroidism ? Rheumatoid arthritis(714.0) Past Surgical History: Procedure Laterality Date ? COLONOSCOPY 11/2002 ? VT LIGATE FALLOPIAN TUBE age 29 ? VT REMOVE TONSILS/ADENOIDS,12+ Y/O ? TONSILLECTOMY age 8 ? TOTAL HIP REPLACEMENT 2003 left ? TOTAL KNEE REPLACEMENT 11/2006 bilat Current Outpatient Medications Medication Sig ? carvedilol (COREG) 3.125 MG Oral Tab Take 1 Tab by mouth DAILY. ? clotrimazole (LOTRIMIN) 1 % Apply externally Cream Apply under breast 2 x a day ? Cranberry 450 MG Oral Tab 1 TAB BY MOUTH EVERY DAY ? divalproex sodium (DEPAKOTE) 500 MG Oral Tab EC 2 BY MOUTH AT BEDTIME ? docusate sodium (COLACE) 100 MG Oral Cap Take 1 Cap by mouth TWICE DAILY. ? escitalopram (LEXAPRO) 10 MG Oral Tab Take 1 Tab by mouth DAILY. ? foliC acid 1 MG Oral Tab TAKE 1 TAB BY MOUTH EVERY DAY ? hydrOXYzine HCL (ATARAX) 10 MG Oral Tab Take 1 Tab by mouth THREE TIMES DAILY NEEDED for Itching or anxiety. ? Incontinence Supply Disposable Does not apply Misc 1 Each by Does not apply route NEEDED (incontinence). Size Large ? Lansoprazole 30 MG Oral CAPSULE DELAYED RELEASE TAKE 1 CAP BY MOUTH DAILY. OVERDUE FOR OFFICE VISIT ? levothyroxine (SYNTHROID) 125 MCG Oral Tab Take 1 Tab by mouth BEFORE BREAKFAST. ? levothyroxine (SYNTHROID\\UNITHROID) 100 MCG Oral Tab TAKE 1 TABLET BY MOUTH DAILY ON EMPTY STOMACH ? methotrexate (TREXALL) 2.5 MG Oral Tab Take 4 Tabs by mouth EVERY 7 DAYS. ? MULTIVITAL PO Take by mouth. ? Nystatin 465160 UNIT/GM Apply externally Powder 1 g by Apply externally route DAILY. Apply to under breasts daily ? simvastatin (ZOCOR) 20 MG Oral Tab TAKE 1 TAB BY MOUTH EVERY BEDTIME. ? trazodone (DESYREL) 50 MG Oral Tab Take 1 Tab by mouth EVERY BEDTIME. No current facility-administered medications for this visit. Allergies Allergen Reactions ? Augmentin Rash ringing ears, breaks out into a sweat ? Bactrim Rash ? Carbamazepine TERRITORY SERVICE REPRESENTATIVE Reaction seizures ? Cortisone Rash ? Dilantin Rash ? Ees [Erythromycin] Rash ? Haloperidol Lactate TERRITORY SERVICE REPRESENTATIVE Reaction ? Lamotrigine TERRITORY SERVICE REPRESENTATIVE Reaction ? [place] Nausea and Vomiting ? Morphine Other "doesn't work" ? Navane [Thiothixene] RIGIDITY ? Pcn [Penicillins] Rash ? Phenytoin Rash SWELLING ? Prolixin [Fluphenazine Enanthoate] Feels like she is crawling out of her skin. ? Prolixin [Prolixin] Anxiety ? Trileptal [Oxcarbazepine-Polysorbate 80] TERRITORY SERVICE REPRESENTATIVE Reaction seizures ? Vicodin Es [Hydrocodone-Acetaminophen] Hives Social History Socioeconomic History ? Marital status: Spouse name: Not on file ? Number of children: Not on file ? Years of education: Not on file ? Highest education level: Not on file Occupational History ? Not on file Social Needs ? Financial resource strain: Not on file ? Food insecurity Worry: Not on file Inability: Not on file ? Transportation needs Medical: Not on file Non-medical: Not on file Tobacco Use ? Smoking status: Never Smoker ? Smokeless tobacco: Never Used Substance and Sexual Activity ? Alcohol use: No ? Drug use: Yes Types: Prescription ? Sexual activity: Not Currently Lifestyle ? Physical activity Days per week: Not on file Minutes per session: Not on file ? Stress: Not on file Relationships ? Social connections Talks on phone: Not on file Gets together: Not on file Attends mandaeism service: Not on file Active member of club or organization: Not on file Attends meetings of clubs or organizations: Not on file Relationship status: Not on file ? Intimate partner violence Fear of current or ex partner: Not on file Emotionally abused: Not on file Physically abused: Not on file Forced sexual activity: Not on file Other Topics Concern ? 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 Unknown Psych Disorder Mother alzheimers ? Heart Father ? Stroke Father ? Schizophrenia Other ? Schizophrenia Sister ROS: Review of systems intake completed by clinical staff. I have reviewed and agree with their documentation. 75-year-old woman referred by Dr. Real for evaluation of left knee pain. Patient had bilateral total knee replacement by Dr. Stahl in 2006 and has generally done quite well. I reviewed office notesas well as prior x-rays. Patient came with her daughter today. Approximately 3 to 4 months ago patient twisted her left knee while getting out of the car. Had significant discomfort at first and describes limping. However, she has very minimal discomfort in the left knee when walking distances. No systemic symptoms. Physical exam shows a healthy-appearing woman in no acute distress. Alert and oriented. Bilateral knees evaluation shows well-healed midline scars. Skin appears normal. There appears to be a very small scratch proximal aspect of wound but no evidence of any infection and no cellulitis. No drainage on palpation and gentle squeezing. No tenderness. There is no effusion. There is full range of motion without pain. No instability findings. No motor or sensory abnormalities. Neurovascular status intact distally left lower extremity . X-rays bilateral knee show no evidence of gross loosening or infection. There is some lucency present which is not any different than the x-rays are reviewed from 2008. Impression: No evidence of loosening or infection. Patient with very little discomfort. Plan: Follow-up PRN only. Impression: ICD-9-CM ICD-10-CM 1. Status post total bilateral knee replacement V43.65 Z96.653 Author: Abner Armenta MD 05/07/2019 15:42 This record contains sections created with voice recognition software. It has been electronically signed. A reasonable attempt at proofreading has been made. Please call with any questions or corrections. documented in this encounter Plan of Treatment Date Type Specialty Care Team Description 07/12/2019 Office Visit Urology Corwin Silva MD [address] [place] [address] [phone] Health Maintenance Due Date Last Done Comments MEDICARE ANNUAL WELLNESS 1945 VISIT DTaP/Tdap/Td Vaccines (1 - 1958 Tdap) DEPRESSION SCREENING 1959 MAMMOGRAM (SCREENING) 1987 Colonoscopy 1997 ZOSTER IMMUNIZATION SERIES 1997 (1 of 2) LIPID DISORDER SCREENING 03/08/2009 03/08/2008, 11/13/2002, 03/29/2001, Additional history exists FALL RISK ASSESSMENT 2012 OSTEOPOROSIS SCREENING 2012 PNEUMOCOCCAL 65+YRS (2 of 2 12/21/2014 12/21/2013 - PCV13) INFLUENZA VACCINE (#1) 2018 12/21/2013 HIV SCREENING Completed 08/08/2003 HEPATITIS C SCREENING [...] filedocumented in this encounter Visit Diagnoses Diagnosis Status post total bilateral knee replacement documented in this encounter Insurance Payer Benefit Plan / Subscriber ID Effective Dates Phone Address Type Group AETNA MEDICARE AETNA MEDICARE [id number] 2019-Present [employer] ADV[employer] ADVANTAGE documented as of this encounter
[2019-07-05] MEDS ORDERED: oxyCODONE/Acetamin 5/325 MG* TAB PO ONE ×2 (09:43→15:41)
--- NOTE | 2019-07-05 10:11 | ED ---
Back Pain - HPI Summary HPI Summary: 74 year old F presenting to [facility] via EMS with a chief complaint of lower back and right hip pain. Patient states that she has been experiencing minor pain since 05/28/2019 that gradually increased in severity over time. She denies having experienced anything on 05/28/2019 to attribute her pain to, however patient mentioned that she fell out of bed on a number of occasions. Patient states that she unintentionally lost 20 pounds since then. She stated that she has not been eating a lot because the pain has been holding her back from going to the dining room. Patient additionally stated that she has been eating a lot of chocolate. She states that this morning, she could not get out of bed to use the bathroom because of intense pain. Patient denies fever, vomiting, or bladder or bowel incontinence but says she has had a little diarrhea. Patients PSHx includes knee surgeries on both knees and left hip surgery. Patient denies smoking, alcohol use, recreational drug use. Patient has a PMHx of bipolar disorder. Home Medications Medication Instructions Recorded Confirmed Type Azelastine 0.05% (OPHTH)(NF) 1 drop DAILY 11/12/16 11/12/16 History [Optivar 0.05% (NF)] Carvedilol TAB* [Coreg TAB*] 1 tab PO DAILY 11/12/16 11/12/16 History Cranberry Fruit [Cranberry] 450 mg PO DAILY 11/12/16 11/12/16 History Divalproex Sodium [Depakote] 500 mg PO DAILY 11/12/16 11/12/16 History Escitalopram Oxalate [Lexapro 20 20 mg PO DAILY 11/12/16 11/12/16 History mg] Folic Acid IV* [Folic Acid IV 1 1 mg PO DAILY 11/12/16 11/12/16 History MG*] Hyoscyamine TAB* [Anaspaz 0.125 MG 0.125 mg PO TID 11/12/16 11/12/16 History TAB*] Lansoprazole [Prevacid] 30 mg PO DAILY 11/12/16 11/12/16 History Levothyroxine TAB* [Synthroid TAB*] 100 mcg PO DAILY 11/12/16 11/12/16 History Methotrexate TAB* 6 tab PO WEEKLY 11/12/16 11/12/16 History Nitrofurantoin Monohyd Macro 100 mg PO BID #20 cap 11/12/16 Rx [Macrobid] Simvastatin TAB(NF) [Zocor 20 MG 20 mg PO DAILY 11/12/16 11/12/16 History (NF)] traZODone TAB* [Desyrel TAB*] 100 mg PO BEDTIME 11/12/16 11/12/16 History - History of Current Complaint Stated Complaint: HIP/BACK PAIN PER EMS Time Seen by Provider: 07/05/19 09:28 Hx Obtained From: Patient Severity Currently: Severe Pain Intensity: 10 Pain Scale Used: 0-10 Numeric Aggravating Symptom(s): Movement Associated Signs And Symptoms: Positive: Weight Loss, Other - Minor diarrhea.. Negative: Fever, Bladder Incontinence, Bowel Incontinence - Allergies/Home Medications Allergies/Adverse Reactions: Allergies Allergy/AdvReac Type Severity Reaction Status Date / Time amoxicillin [From Augmentin] Allergy Unknown Verified 07/05/19 10:28 Reaction Details carbamazepine [From Tegretol] Allergy Unknown Verified 07/05/19 10:28 Reaction Details clavulanic acid Allergy Unknown Verified 07/05/19 10:28 [From Augmentin] Reaction Details erythromycin base Allergy Unknown Verified 07/05/19 10:28 Reaction Details fluphenazine [From Prolixin] Allergy Unknown Verified 07/05/19 10:28 Reaction Details haloperidol Allergy Unknown Verified 07/05/19 10:28 Reaction Details hydrocodone Allergy Unknown Verified 07/05/19 10:28 Reaction Details lamotrigine [From Lamictal] Allergy Unknown Verified 07/05/19 10:28 Reaction Details morphine Allergy Unknown Verified 07/05/19 10:28 Reaction Details oxcarbazepine Allergy Unknown Verified 07/05/19 10:28 [From Trileptal] Reaction Details Penicillins Allergy Unknown Verified 07/05/19 10:28 Reaction Details phenytoin [From Dilantin] Allergy Unknown Verified 07/05/19 10:28 Reaction Details quetiapine [From Seroquel] Allergy Unknown Verified 07/05/19 10:28 Reaction Details sulfamethoxazole Allergy Unknown Verified 07/05/19 10:28 [From Bactrim] Reaction Details thiothixene [From Navane] Allergy Unknown Verified 07/05/19 10:28 Reaction Details trimethoprim [From Bactrim] Allergy Unknown Verified 07/05/19 10:28 Reaction Details Cortisone Allergy Unknown Unknown Uncoded 11/12/16 17:01 Reaction Details [place] Allergy Vomiting Uncoded 11/12/16 17:01 Phenytoin Allergy Unknown Uncoded 11/12/16 17:01 Reaction Details Home Medications: Home Medications Azelastine 0.05% (OPHTH)(NF) [Optivar 0.05% (NF)] 1 drop BOTH EYES DAILY PRN [History Confirmed 07/05/19] Carvedilol TAB* [Coreg TAB*] 3.125 mg PO DAILY 11/12/16 [History Confirmed 07/04] Cranberry Fruit [Cranberry] 450 mg PO DAILY 11/12/16 [History Confirmed 07/05/19 ] Divalproex Sodium [Depakote] 1,000 mg PO BEDTIME 11/12/16 [History Confirmed ] Folic Acid IV* [Folic Acid IV 1 MG*] 1 mg PO DAILY 11/12/16 [History Confirmed 07/05/19] Hyoscyamine TAB* [Anaspaz 0.125 MG TAB*] 0.125 mg PO TID PRN 11/12/16 [History Confirmed 07/05/19] Levothyroxine TAB* [Synthroid TAB*] 100 mcg PO DAILY 11/12/16 [History Confirmed 07/05/19] Simvastatin TAB(NF) [Zocor 20 MG (NF)] 20 mg PO BEDTIME 11/12/16 [History Confirmed 07/05/19] traZODone TAB* [Desyrel TAB*] 100 mg PO BEDTIME 11/12/16 [History Confirmed ] Acetaminophen [Acetaminophen Extra Strength] 1,000 mg PO TID 07/05/19 [History Confirmed 07/05/19] Cholecalciferol CAP/TAB(NF) [Vitamin D3 CAP/TAB (NF)] 1,000 unit PO DAILY [History Confirmed 07/05/19] Cyclobenzaprine TAB* [Flexeril 10 MG TAB*] 10 mg PO BEDTIME PRN 07/05/19 [ History Confirmed 07/05/19] DULoxetine DR CAP* [Cymbalta CAP*] 30 mg PO BID 07/05/19 [History Confirmed ] Guaifenesin/Dextromethorphan [Tussin Dm Cough-Chest Congest] 15 ml PO Q4H PRN [History Confirmed 07/05/19] L. Acidophilus/Pectin, [place] [Acidophilus Capsule] 1 each PO DAILY 07/05/19 [ History Confirmed 07/05/19] LevoCETirizine TAB (NF) [Xyzal TAB (NF)] 5 mg PO DAILY 07/05/19 [History Confirmed 07/05/19] Loperamide CAP* [Imodium CAP*] 4 mg PO ONCE MDD 8 tabs 07/05/19 [History Confirmed 07/05/19] Menthol [Icy Hot Back Patch] 5 % TRANSDERM DAILY 07/05/19 [History Confirmed ] Methotrexate Sodium/Pf [Methotrexate 50 mg/2 ml Vial] 0.6 ml INJ WEEKLY [History Confirmed 07/05/19] Multivitamins/Minerals TAB* [Theragran/minerals TAB*] 1 tab PO DAILY 07/05/19 [ History Confirmed 07/05/19] Naproxen TAB* [Naprosyn 250 mg TAB*] 250 mg PO BID 07/05/19 [History Confirmed 07/05/19] Naproxen TAB* [Naprosyn 250 mg TAB*] 500 mg PO 0000 07/05/19 [History Confirmed 07/05/19] Omeprazole CAP (NF) [Prilosec CAP* 20 MG] 20 mg PO DAILY 07/05/19 [History Confirmed 07/05/19] Polyethylene Glycol 3350 [Clearlax] 17 gm PO DAILY PRN 07/05/19 [History Confirmed 07/05/19] hydrOXYzine HCL TAB* [Atarax 10 MG TAB*] 10 mg PO BEDTIME PRN 07/05/19 [History Confirmed 07/05/19] PMH/Surg Hx/FS Hx/Imm Hx Endocrine/Hematology History: Reports: Hx Thyroid Disease - Hypothyroid Denies: Hx Diabetes Cardiovascular History: Reports: Hx Hypertension - ON MEDS Denies: Hx Pacemaker/ICD Respiratory History: Denies: Hx Asthma, Hx Chronic Obstructive Pulmonary Disease (COPD) GI History: Denies: Hx Ulcer History: Reports: Other Problems/Disorders - urinary tract infections Denies: Hx Dialysis, Hx Renal Disease Sensory History: Denies: Hx Hearing Aid Psychiatric History: Reports: Hx Bipolar Disorder Denies: Hx Panic Disorder - Surgical History Surgery Procedure, Year, and Place: Left hip replacement 2003, Bilateral knee replacements 2006; TUBAL LIGATION Infectious Disease History: No Infectious Disease History: Denies: Hx Hepatitis, Hx Human Immunodeficiency Virus (HIV), History Other Infectious Disease, Traveled Outside the [place] in Last 30 Days - Family History Known Family History: Positive: Cardiac Disease - Social History Alcohol Use: None Substance Use Type: Reports: None Smoking Status (MU): Never Smoked Tobacco Review of Systems Positive: Other - Weight loss. . Negative: Fever Positive: Diarrhea - Minor diarrhea. . Negative: Vomiting Negative: incontinence - No bowel or bladder incontinence. Positive: Other - Lower back and knee pain. All Other Systems Reviewed And Are Negative: Yes Physical Exam - Summary Physical Exam Summary: Constitutional: Well-developed, Well-nourished, Alert. (-) Distressed. Skin: Warm, Dry HENT: Normocephalic; Atraumatic Eyes: Conjunctiva normal Neck: Musculoskeletal ROM normal neck. (-) JVD, (-) Stridor, (-) Tracheal deviation Cardio: Rhythm regular, rate normal, Heart sounds normal; Intact distal pulses; Radial pulses are 2+ and symmetric. (-) Murmur Pulmonary/Chest wall: Effort normal. (-) Respiratory distress, (-) Wheezes, (-) Rales Abd: Soft, (-) tenderness, (-) Distension, (-) Guarding, (-) Rebound Musculoskeletal: (-) Edema. Patient sits up in bed without difficulty. No midline lumbar tenderness. No anterior or posterior hip tenderness. Lymph: (-) Cervical adenopathy Neuro: Alert, Oriented x3 Psych: Mood and affect Normal Triage Information Reviewed: Yes Vital Signs On Initial Exam: Initial Vitals Temp Pulse Resp BP Pulse Ox 97.7 F 91 18 181/116 100 07/05/19 09:30 07/05/19 09:30 07/05/19 09:30 07/05/19 09:30 07/05/19 09:30 Vital Signs Reviewed: Yes Procedures - Sedation Patient Received Moderate/Deep Sedation with Procedure: No Diagnostics - Vital Signs Vital Signs Temp Pulse Resp BP Pulse Ox 07/05/19 09:58 18 07/05/19 09:30 97.7 F 91 18 181/116 100 - Laboratory Result Diagrams: 07/05/19 10:30 07/05/19 10:30 Lab Statement: Any lab studies that have been ordered have been reviewed, and results considered in the medical decision making process. - Radiology LUMBAR SPINE MRI Radiology Interpretation Completed By: Radiologist Summary of Radiographic Findings: IMPRESSION: 1. THERE IS BONE EDEMA CORRESPONDING TO THE FRACTURES NOTED AT L1 AND L2 ON THE PREVIOUS. CT EXAMINATION. Dr. Cadena has reviewed this imaging report. - CT LUMBAR SPINE CT CT Interpretation Completed By: Radiologist Summary of CT Findings: IMPRESSION: 1. BURST FRACTURE OF L1 WITH OSSEOUS RETROPULSION OF A BONE FRAGMENT INTO THE CENTRAL. CANAL RESULTING IN MODERATE TO SEVERE NARROWING OF THE CENTRAL CANAL AT THIS LEVEL. 2. THERE IS A LEFT L1 TRANSVERSE PROCESS FRACTURE. 3. THERE IS A NONDISPLACED FRACTURE OF THE SUPERIOR ENDPLATE OF L2 ANTERIORLY. 4. OSTEOPENIA. Dr. Cadena has reviewed this imaging report. PELVIS CT CT Interpretation Completed By: Radiologist Summary of CT Findings: IMPRESSION: Degenerative changes of the lumbar spine with pelvic ring is intact. Patient. is status post left hip replacement. Dr. Cadena has reviewed this imaging report. Re-Evaluation - Re-Evaluation First Eval Re-Evaluation Time: 12:00 Comment: CTs discussed with patient, will obtain MRI. Second Eval Re-Evaluation Time: 13:57 Comment: Dr. Cadena discussed the care of this patient with Dr. Real, patients PCP. Dr. eRal agrees that patient has a cognitive delay and that her bipolar disorder makes it hard to get an accurate PMHx. Third Eval Re-Evaluation Time: 14:05 Comment: Dr. Cadena discussed the care of this patient with Dr. Coe from [facility]. Dr. Coe accepts this patient. Back Pain Course/Dx - Course Course Of Treatment: Patient is here with roughly 1 month of lower back pain and right hip pain. Patient is hard to get a history from which was confirmed by her primary care doctor who called in. Patient cannot recall any recent fall. Patient has no neurologic symptoms or deficits on exam. Patient had a CT scan of her lumbar spine and pelvis which showed a L1 burst fracture with retropulsion into the canal, L1 transverse process fracture, and a L2 endplate fracture. I called the spine surgeon at [facility] and they recommended an MRI to see the acuteness of the injury. Patient had an MRI of her L-spine which showed bony edema consistent with an acute fracture. Patient was then transferred to [facility] emergency Department for further evaluation and management. - Diagnoses Provider Diagnoses: Back pain, Hip pain, Arthritis, rheumatoid, Fracture of transverse process of lumbar vertebra, Burst fracture of lumbar vertebra, Defect of endplate of vertebra - Provider Notifications Discussed Care Of Patient With: Rula Nicole Time Discussed With Above Provider: 11:53 Instructed by Provider To: Other - Patient's case was discussed with Dr. Rual Nicole, neurosurgery, at [facility], patient to have MRI done. [id number] Dr. Cadena discussed the care of this patient with Dr. Real, patients PCP. Dr. Real agrees that patient has a cognitive delay and that her bipolar disorder makes it hard to get an accurate PMHx. Dr. Cadena discussed the care of this patient with Dr. Coe from [facility]. Dr. Coe accepts this patient. - Critical Care Time Critical Care Time: 30-74 min - 45 minutes of critical care time. Critical Care Statement: Critical care time is provided exclusive of any time spent performing procedures. Discharge ED - Sign-Out/Discharge Documenting (check all that apply): Patient Departure - Transferred to [facility]. - Discharge Plan Condition: Stable Disposition: TRANS HIGHER LVL OF CARE FAC Referrals: Cherelle Real MD [Primary Care Provider] - - Billing Disposition and Condition Condition: STABLE Disposition: Trans Higher Lvl of Care Fac - Attestation Statements Document Initiated by Kareenibe: Yes Documenting Scribe: ONIEL PALMER Provider For Whom Scribe is Documenting (Include Credential): LUCRETIA CADENA MD Scribe Attestation: ONIEL Wild, scribed for LUCRETIA CADENA MD on 07/05/19 at 1424. Scribe Documentation Reviewed: Yes Provider Attestation: The documentation as recorded by the samaria, ONIEL PALMER accurately reflects the service I personally performed and the decisions made by , LUCRETIA CADENA MD Status of Scribe Document: Viewed
[2019-07-05 10:50] LABS: ABS Basophils 0.1 10^3/ul (0-0.2); ABS Eosinophils 0.1 10^3/ul (0-0.6); ABS Lymphocytes 1.5 10^3/ul (1.0-4.8); ABS Monocytes 1.3 10^3/ul (0-0.8); ABS Neutrophils 6.7 10^3/ul (1.5-7.7); Eosinophil % 1.1 %; Hematocrit 42 % (35-47); Hemoglobin 14.4 g/dL (12.0-16.0); Lymphocyte % 15.6 %; Mean Corpuscular HGB Conc 34 g/dL (31-36); Mean Corpuscular Hemoglobin 30 pg (27-31); Mean Corpuscular Volume 87 fL (80-97); Mean Platelet Volume 7.7 fL (7.4-10.4); Platelet Count 230 10^3/uL (150-450); Red Blood Count 4.86 10^6 /uL (3.70-4.87); Red Cell Distribution Width 20 % (10-15); White Blood Count 9.7 10^3/uL (3.5-10.8)
[2019-07-05 11:40] LABS: Calcium 9.7 mg/dL (8.6-10.3); Potassium 3.8 mmol/L (3.5-5.0); Total Bilirubin 0.6 mg/dL (0.2-1.0)
[2019-07-05 11:46] LABS: Albumin/Globulin Ratio 1.5 (1-3); BUN/Creatinine Ratio 24.3 (8-20); EGFR African American 93.3 (>60); EGFR Non-African American 77.1 (>60); Globulin 2.7 g/dL (2-4); Total Protein 6.7 g/dL (6.4-8.9)
[2019-07-05 12:01] LABS: TSH (Thyroid Stimulating Horm) 1.08 mcIU/mL (0.34-5.60)
[2019-07-05 12:03] LABS: Free T4 1.34 ng/dL (0.61-1.12)
[2019-07-05 15:41] VITALS: BP 151/101
== END 2019-07-05 15:40 | disposition short-term general hospital (02) ==
LOC: ED 09:26
DX: M54.5 Low back pain (principal); S32.001A Stable burst fracture of unspecified lumbar vertebra, initial encounter for closed fracture; I10 Essential (primary) hypertension; S32.009A Unspecified fracture of unspecified lumbar vertebra, initial encounter for closed fracture; F31.9 Bipolar disorder, unspecified; E03.9 Hypothyroidism, unspecified; M25.551 Pain in right hip; Z79.890 Hormone replacement therapy; Z79.899 Other long term (current) drug therapy; Z96.642 Presence of left artificial hip joint; Z88.0 Allergy status to penicillin; Z88.8 Allergy status to other drugs, medicaments and biological substances; Z88.6 Allergy status to analgesic agent; W06.XXXA Fall from bed, initial encounter; Y92.9 Unspecified place or not applicable; R19.7 Diarrhea, unspecified
CPT/HCPCS: 36415; 72131; 72148; 72192; 80053; 84439; 84443; 85025; 99283; A9270-GY

== ENCOUNTER 2020-03-31 10:39 | Inpatient (IN) ==
[2020-03-31] MEDS ORDERED: oxyCODONE/Acetamin 5/325 mg TAB PO ONE ×2 (11:21→14:44)
[2020-03-31 11:40] LABS: ABS Eosinophils 0.1 10^3/ul (0-0.6); ABS Monocytes 0.9 10^3/ul (0-0.8); ABS Neutrophils 4.5 10^3/ul (1.5-7.7); Eosinophil % 1.8 %; Hematocrit 31 % (35-47); Hemoglobin 10.4 g/dL (12.0-16.0); Lymphocyte % 14.9 %; Mean Corpuscular HGB Conc 34 g/dL (31-36); Mean Corpuscular Hemoglobin 28 pg (27-31); Mean Corpuscular Volume 82 fL (80-97); Mean Platelet Volume 7.1 fL (7.4-10.4); Platelet Count 243 10^3/uL (150-450); Red Blood Count 3.79 10^6 /uL (3.70-4.87); Red Cell Distribution Width 21 % (10-15); White Blood Count 6.5 10^3/uL (3.5-10.8)
[2020-03-31 11:51] LABS: Urine Appearance Clear; Urine Bilirubin Negative (Negative); Urine Blood 2+ (Negative); Urine Color Yellow; Urine Glucose Negative (Negative); Urine Ketones Negative (Negative); Urine Nitrite Negative (Negative); Urine Protein Negative (Negative); Urine Specific Gravity 1.006 (1.010-1.030); Urine Urobilinogen Negative (Negative)
[2020-03-31 11:53] LABS: Urine Bacteria Absent (Absent); Urine Red Blood Cell 3+(>10/hpf) (Absent); Urine White Blood Cell Trace(0-5/hpf) (Absent)
[2020-03-31 11:54] LABS: Activated Partial Thrombo Time 31.8 seconds (26.0-38.0); INR 1.02 (0.82-1.09)
[2020-03-31 11:58] LABS: Influenza A Molecular Negative (Negative); Influenza B Molecular Negative (Negative)
[2020-03-31 12:10] LABS: ALT 8 U/L (7-52); Albumin 3.4 g/dL (3.2-5.2); Albumin/Globulin Ratio 1.3 (1-3); Alkaline Phosphatase 53 U/L (34-104); BUN/Creatinine Ratio 11.5 (8-20); Blood Urea Nitrogen 9 mg/dL (6-24); C Reactive Protein 20.74 mg/L (<8.01); CO2 Carbon Dioxide 29 mmol/L (22-32); Calcium 8.3 mg/dL (8.6-10.3); Chloride 91 mmol/L (101-111); EGFR African American 87.6 (>60); EGFR Non-African American 72.4 (>60); Globulin 2.7 g/dL (2-4); Glucose 91 mg/dL (70-100); Sodium 125 mmol/L (135-145); Total Protein 6.1 g/dL (6.4-8.9)
[2020-03-31 12:29] LABS: Ferritin 32.4 ng/mL (11-307)
[2020-03-31 12:31] LABS: Anion Gap 5 mmol/L (2-11)
[2020-03-31] MEDS ORDERED: Tetan/Diph/Pertus SYR(Tdap) 0.5 ML SYR(BOOSTRIX) use SYR contains LATEX IM ONE (12:46)
[2020-03-31 15:29] LABS: Potassium Redraw 4.2 mmol/L (3.5-5.0)
[2020-03-31] MEDS ORDERED: NS 0.9% 1000 ml BAG 1,000 ML IV SCH (15:30)
[2020-03-31] MEDS ORDERED: Remdesivir 100 mg Vial 200 MG in NS 0.9% 250 ml 210 ML IV ONE (17:00)
[2020-03-31] MEDS: DULoxetine DR 30 mg CAP PO SCH (20:57)
[2020-03-31] MEDS: Enoxaparin 40 MG/0.4 ML SYR SUBCUT SCH (20:58)
[2020-04-01] MEDS: Acetaminop/Codeine 300mg/30mg TAB PO PRN ×2 (01:59→09:46)
[2020-04-01 06:04] LABS: Hematocrit 33 % (35-47); Hemoglobin 10.8 g/dL (12.0-16.0); Mean Corpuscular HGB Conc 33 g/dL (31-36); Mean Corpuscular Hemoglobin 27 pg (27-31); Mean Corpuscular Volume 83 fL (80-97); Mean Platelet Volume 6.9 fL (7.4-10.4); Platelet Count 243 10^3/uL (150-450); Red Blood Count 3.96 10^6 /uL (3.70-4.87); Red Cell Distribution Width 21 % (10-15); White Blood Count 5.8 10^3/uL (3.5-10.8)
[2020-04-01 06:17] LABS: Albumin 3.3 g/dL (3.2-5.2); Albumin/Globulin Ratio 1.1 (1-3); BUN/Creatinine Ratio 11.8 (8-20); C Reactive Protein 18.1 mg/L (<8.01); Calcium 8.5 mg/dL (8.6-10.3); EGFR African American 102.6 (>60); EGFR Non-African American 84.8 (>60); Globulin 2.9 g/dL (2-4); Potassium 4.1 mmol/L (3.5-5.0); Total Bilirubin 0.3 mg/dL (0.2-1.0); Total Protein 6.2 g/dL (6.4-8.9)
[2020-04-01 06:24] LABS: INR 1.03 (0.82-1.09)
[2020-04-01 09:29] LABS: ABS Lymphocytes 0.6 10^3/ul (1.0-4.8); ABS Monocytes 0.2 10^3/ul (0-0.8); ABS Neutrophils 4.9 10^3/ul (1.5-7.7); Lymphocyte % 11.2 %; Nucleated Red Blood Cells % 0.1
[2020-04-01] MEDS: DULoxetine DR 30 mg CAP PO SCH ×2 (09:58→20:49)
[2020-04-01] MEDS: Multivitamins/Minerals TAB PO SCH (10:03)
[2020-04-01] MEDS: Cholecalciferol (VIT D3) 1,000 unit TAB PO SCH (10:13)
[2020-04-01] MEDS: Remdesivir 100 mg Vial 100 MG in NS 0.9% 250 ml 230 ML IV SCH (20:49)
[2020-04-01] MEDS: Enoxaparin 40 MG/0.4 ML SYR SUBCUT SCH (20:53)
[2020-04-02] MEDS: Acetaminop/Codeine 300mg/30mg TAB PO PRN ×2 (06:22→21:28)
[2020-04-02 06:41] LABS: Hematocrit 34 % (35-47); Hemoglobin 11.1 g/dL (12.0-16.0); Mean Corpuscular HGB Conc 33 g/dL (31-36); Mean Corpuscular Hemoglobin 27 pg (27-31); Mean Corpuscular Volume 81 fL (80-97); Mean Platelet Volume 6.9 fL (7.4-10.4); Platelet Count 267 10^3/uL (150-450); Red Blood Count 4.16 10^6 /uL (3.70-4.87); Red Cell Distribution Width 22 % (10-15)
[2020-04-02 07:03] LABS: Albumin 3.3 g/dL (3.2-5.2); Albumin/Globulin Ratio 1.4 (1-3); BUN/Creatinine Ratio 15.6 (8-20); Calcium 8.9 mg/dL (8.6-10.3); EGFR African American 110.1 (>60); Globulin 2.3 g/dL (2-4); Potassium 3.8 mmol/L (3.5-5.0); Total Bilirubin 0.3 mg/dL (0.2-1.0); Total Protein 5.6 g/dL (6.4-8.9)
[2020-04-02 07:35] LABS: ABS Lymphocytes 1.5 10^3/ul (1.0-4.8); ABS Monocytes 1.4 10^3/ul (0-0.8); Lymphocyte % 14.8 %; Nucleated Red Blood Cells % 0.1
[2020-04-02] MEDS: DULoxetine DR 30 mg CAP PO SCH ×2 (09:15→20:09)
[2020-04-02] MEDS: Cholecalciferol (VIT D3) 1,000 unit TAB PO SCH (09:15)
[2020-04-02] MEDS: Multivitamins/Minerals TAB PO SCH (09:16)
[2020-04-02] MEDS: Polyethylene Glycol 3350 17 GM PACKET PO SCH (17:10)
[2020-04-02] MEDS: Enoxaparin 40 MG/0.4 ML SYR SUBCUT SCH (20:17)
[2020-04-02] MEDS: Remdesivir 100 mg Vial 100 MG in NS 0.9% 250 ml 230 ML IV SCH (21:23)
[2020-04-03 07:07] LABS: Albumin 3.3 g/dL (3.2-5.2); Albumin/Globulin Ratio 1.3 (1-3); BUN/Creatinine Ratio 21.9 (8-20); Calcium 8.6 mg/dL (8.6-10.3); EGFR African American 110.1 (>60); Globulin 2.6 g/dL (2-4); Potassium 3.9 mmol/L (3.5-5.0); Total Bilirubin 0.3 mg/dL (0.2-1.0); Total Protein 5.9 g/dL (6.4-8.9)
[2020-04-03] MEDS: Polyethylene Glycol 3350 17 GM PACKET PO SCH (08:03)
[2020-04-03] MEDS: DULoxetine DR 30 mg CAP PO SCH ×2 (08:04→20:27)
[2020-04-03] MEDS: Multivitamins/Minerals TAB PO SCH (08:04)
[2020-04-03] MEDS: Cholecalciferol (VIT D3) 1,000 unit TAB PO SCH (08:05)
[2020-04-03] MEDS: NS 0.9% 1000 ml BAG 1,000 ML IV SCH ×2 (08:57→17:21)
[2020-04-03] MEDS: Acetaminop/Codeine 300mg/30mg TAB PO PRN (19:29)
[2020-04-03] MEDS: Enoxaparin 40 MG/0.4 ML SYR SUBCUT SCH (20:27)
[2020-04-03] MEDS ORDERED: Al Hydrox/Mg Hydrox/Simet LIQ 30 ML UDC PO PRN (21:20)
[2020-04-03] MEDS ORDERED: Al Hydrox/Mg Hydrox/Simet LIQ 30 ML UDC PO ONE (21:21)
[2020-04-03] MEDS: Remdesivir 100 mg Vial 100 MG in NS 0.9% 250 ml 230 ML IV SCH (21:38)
[2020-04-04] MEDS: NS 0.9% 1000 ml BAG 1,000 ML IV SCH (03:13)
[2020-04-04] MEDS: Benzocaine/Menthol LOZ PO PRN (05:35)
[2020-04-04 06:18] LABS: CO2 Carbon Dioxide 26 mmol/L (22-32); Calcium 7.9 mg/dL (8.6-10.3); Chloride 92 mmol/L (101-111); Magnesium 1.5 mg/dL (1.9-2.7); Sodium 123 mmol/L (135-145)
[2020-04-04 06:20] LABS: Anion Gap 5 mmol/L (2-11)
[2020-04-04 06:24] LABS: BUN/Creatinine Ratio 21.6 (8-20); Blood Urea Nitrogen 11 mg/dL (6-24); EGFR Non-African American 118.2 (>60); Glucose 83 mg/dL (70-100)
[2020-04-04] MEDS ORDERED: Magnesium Sulfate IV 3 GM in NS 0.9% 100 ml BAG 100 ML IVPB ONE (08:07)
[2020-04-04] MEDS: Polyethylene Glycol 3350 17 GM PACKET PO SCH (09:44)
[2020-04-04] MEDS: Cholecalciferol (VIT D3) 1,000 unit TAB PO SCH (09:44)
[2020-04-04] MEDS: DULoxetine DR 30 mg CAP PO SCH ×2 (09:47→22:18)
[2020-04-04] MEDS: Multivitamins/Minerals TAB PO SCH (09:47)
[2020-04-04] MEDS: Remdesivir 100 mg Vial 100 MG in NS 0.9% 250 ml 230 ML IV SCH (22:11)
[2020-04-04] MEDS: Enoxaparin 40 MG/0.4 ML SYR SUBCUT SCH (22:15)
[2020-04-05] MEDS: NS 0.9% 1000 ml BAG 1,000 ML IV SCH ×2 (07:02→17:16)
[2020-04-05] MEDS: Polyethylene Glycol 3350 17 GM PACKET PO SCH (08:08)
[2020-04-05] MEDS: Cholecalciferol (VIT D3) 1,000 unit TAB PO SCH (08:09)
[2020-04-05] MEDS: DULoxetine DR 30 mg CAP PO SCH ×2 (08:09→20:54)
[2020-04-05] MEDS: Multivitamins/Minerals TAB PO SCH (08:09)
[2020-04-05 08:18] LABS: Calcium 7.9 mg/dL (8.6-10.3); EGFR African American 116.3 (>60); EGFR Non-African American 96.1 (>60); Potassium 3.9 mmol/L (3.5-5.0)
[2020-04-05] MEDS: Benzocaine/Menthol LOZ PO PRN (08:23)
[2020-04-05 14:29] LABS: Magnesium 1.7 mg/dL (1.9-2.7)
[2020-04-05] MEDS: Enoxaparin 40 MG/0.4 ML SYR SUBCUT SCH (20:57)
[2020-04-06] MEDS: Acetaminop/Codeine 300mg/30mg TAB PO PRN (02:49)
[2020-04-06] MEDS: Benzocaine/Menthol LOZ PO PRN (02:50)
[2020-04-06] MEDS: NS 0.9% 1000 ml BAG 1,000 ML IV SCH (04:10)
[2020-04-06 07:13] LABS: BUN/Creatinine Ratio 26.2 (8-20); Calcium 7.8 mg/dL (8.6-10.3); EGFR African American 116.3 (>60); EGFR Non-African American 96.1 (>60); Magnesium 1.6 mg/dL (1.9-2.7); Potassium 4.1 mmol/L (3.5-5.0)
[2020-04-06] MEDS: Multivitamins/Minerals TAB PO SCH (09:13)
[2020-04-06] MEDS: Cholecalciferol (VIT D3) 1,000 unit TAB PO SCH (09:13)
[2020-04-06] MEDS: DULoxetine DR 30 mg CAP PO SCH ×2 (09:13→21:45)
[2020-04-06] MEDS: Polyethylene Glycol 3350 17 GM PACKET PO SCH (09:14)
[2020-04-06] MEDS ORDERED: Magnesium Sulfate IV 3 GM in NS 0.9% 100 ml BAG 100 ML IVPB ONE (10:15)
[2020-04-06 15:36] LABS: BUN/Creatinine Ratio 25.8 (8-20); Blood Urea Nitrogen 16 mg/dL (6-24); CO2 Carbon Dioxide 28 mmol/L (22-32); Calcium 7.9 mg/dL (8.6-10.3); Chloride 95 mmol/L (101-111); EGFR African American 114.2 (>60); EGFR Non-African American 94.4 (>60); Glucose 116 mg/dL (70-100); Sodium 127 mmol/L (135-145)
[2020-04-06 16:04] LABS: Anion Gap 4 mmol/L (2-11)
[2020-04-06] MEDS: Enoxaparin 40 MG/0.4 ML SYR SUBCUT SCH (21:41)
[2020-04-07 06:26] LABS: Hematocrit 29 % (35-47); Hemoglobin 9.4 g/dL (12.0-16.0); Mean Corpuscular HGB Conc 33 g/dL (31-36); Mean Corpuscular Hemoglobin 27 pg (27-31); Mean Corpuscular Volume 82 fL (80-97); White Blood Count 13.8 10^3/uL (3.5-10.8)
[2020-04-07 06:40] LABS: BUN/Creatinine Ratio 25.5 (8-20); Calcium 7.9 mg/dL (8.6-10.3); EGFR African American 131.1 (>60); EGFR Non-African American 108.3 (>60); Potassium 4.1 mmol/L (3.5-5.0)
[2020-04-07 06:50] LABS: ABS Basophils 0.1 10^3/ul (0-0.2); ABS Eosinophils 0.4 10^3/ul (0-0.6); ABS Lymphocytes 2.6 10^3/ul (1.0-4.8); ABS Monocytes 2.5 10^3/ul (0-0.8); ABS Neutrophils 8.3 10^3/ul (1.5-7.7); Eosinophil % 2.6 %; Lymphocyte % 18.9 %; Platelet Count 295 10^3/uL (150-450); Polychromasia 1+; Red Cell Distribution Width 23 % (10-15)
[2020-04-07] MEDS: Cholecalciferol (VIT D3) 1,000 unit TAB PO SCH (10:42)
[2020-04-07] MEDS: DULoxetine DR 30 mg CAP PO SCH ×2 (10:48→22:24)
[2020-04-07] MEDS: Multivitamins/Minerals TAB PO SCH (10:55)
[2020-04-07] MEDS: Polyethylene Glycol 3350 17 GM PACKET PO SCH (10:58)
[2020-04-07] MEDS ORDERED: cefTRIAXone 1 gm/50 mL NS BAG 1 GM/50 ML BAG IVPB ONE (15:00)
[2020-04-07 15:05] LABS: Magnesium 1.9 mg/dL (1.9-2.7)
[2020-04-07] MEDS: Ondansetron ODT 4 mg TAB 4 MG TAB SL PRN (16:34)
[2020-04-07] MEDS: Enoxaparin 40 MG/0.4 ML SYR SUBCUT SCH (22:22)
[2020-04-08 06:31] LABS: Hematocrit 29 % (35-47); Hemoglobin 9.4 g/dL (12.0-16.0); Mean Corpuscular HGB Conc 33 g/dL (31-36); Mean Corpuscular Hemoglobin 27 pg (27-31); Mean Corpuscular Volume 83 fL (80-97); Mean Platelet Volume 7.4 fL (7.4-10.4); Platelet Count 299 10^3/uL (150-450); Red Blood Count 3.48 10^6 /uL (3.70-4.87); Red Cell Distribution Width 24 % (10-15); White Blood Count 11.7 10^3/uL (3.5-10.8)
[2020-04-08 06:40] LABS: Calcium 8.1 mg/dL (8.6-10.3); Magnesium 1.7 mg/dL (1.9-2.7); Potassium 4.3 mmol/L (3.5-5.0)
[2020-04-08 06:45] LABS: BUN/Creatinine Ratio 21.3 (8-20); EGFR African American 116.3 (>60); EGFR Non-African American 96.1 (>60)
[2020-04-08 06:51] LABS: ABS Basophils 0.1 10^3/ul (0-0.2); ABS Eosinophils 0.2 10^3/ul (0-0.6); ABS Lymphocytes 2.4 10^3/ul (1.0-4.8); ABS Monocytes 2.4 10^3/ul (0-0.8); ABS Neutrophils 6.6 10^3/ul (1.5-7.7); Eosinophil % 1.8 %; Lymphocyte % 20.8 %; Nucleated Red Blood Cells % 0.1
[2020-04-08 06:52] LABS: Polychromasia 1+
[2020-04-08] MEDS ORDERED: Magnesium Sulfate 2 gm BAG 2 GM/50 ML BAG IVPB ONE (09:15)
[2020-04-08] MEDS: Multivitamins/Minerals TAB PO SCH (10:06)
[2020-04-08] MEDS: DULoxetine DR 30 mg CAP PO SCH ×2 (10:07→20:58)
[2020-04-08] MEDS: Cholecalciferol (VIT D3) 1,000 unit TAB PO SCH (10:07)
[2020-04-08] MEDS: Polyethylene Glycol 3350 17 GM PACKET PO SCH (10:08)
[2020-04-08 11:22] LABS: C Reactive Protein 24.64 mg/L (<8.01)
[2020-04-08] MEDS: Ondansetron ODT 4 mg TAB 4 MG TAB SL PRN (14:53)
[2020-04-08] MEDS: Ciproflox/Dexameth OTIC.SUSP 7.5 ML BTL RIGHT EAR SCH (20:57)
[2020-04-08] MEDS: Enoxaparin 40 MG/0.4 ML SYR SUBCUT SCH (20:58)
[2020-04-09 06:38] LABS: ABS Basophils 0.1 10^3/ul (0-0.2); ABS Eosinophils 0.2 10^3/ul (0-0.6); ABS Lymphocytes 2.4 10^3/ul (1.0-4.8); ABS Monocytes 1.8 10^3/ul (0-0.8); ABS Neutrophils 4.6 10^3/ul (1.5-7.7); Eosinophil % 2.7 %; Hematocrit 29 % (35-47); Hemoglobin 9.5 g/dL (12.0-16.0); Mean Corpuscular HGB Conc 33 g/dL (31-36); Mean Corpuscular Hemoglobin 28 pg (27-31); Mean Corpuscular Volume 83 fL (80-97); Mean Platelet Volume 7.3 fL (7.4-10.4); Platelet Count 298 10^3/uL (150-450); Red Blood Count 3.44 10^6 /uL (3.70-4.87); Red Cell Distribution Width 24 % (10-15); White Blood Count 9.1 10^3/uL (3.5-10.8)
[2020-04-09 06:57] LABS: BUN/Creatinine Ratio 18.2 (8-20); EGFR African American 106.2 (>60); EGFR Non-African American 87.8 (>60); Magnesium 1.9 mg/dL (1.9-2.7); Potassium 4.2 mmol/L (3.5-5.0)
[2020-04-09] MEDS: Polyethylene Glycol 3350 17 GM PACKET PO SCH (09:15)
[2020-04-09] MEDS: Ciproflox/Dexameth OTIC.SUSP 7.5 ML BTL RIGHT EAR SCH (09:15)
[2020-04-09] MEDS: Multivitamins/Minerals TAB PO SCH (09:16)
[2020-04-09] MEDS: DULoxetine DR 30 mg CAP PO SCH (09:16)
[2020-04-09] MEDS: Cholecalciferol (VIT D3) 1,000 unit TAB PO SCH (09:16)
[2020-04-09 11:32] VITALS: BP 141/78
== END 2020-04-09 17:03 | DRG 177 ==
LOC: MED 10:39 → ED 10:39 → SSU 04-04 21:00
PROVIDERS: ADMIT Internal Medicine; ATTEND Hospitalist

== ENCOUNTER 2022-12-22 08:09 | Observation (INO) ==
[2022-12-22 10:38] LABS: ABS Eosinophils 0.1 10^3/uL (0.0-0.5); ABS Lymphocytes 1.7 10^3/uL (1.0-4.8); ABS Monocytes 1.7 10^3/uL (0.0-0.9); ABS Neutrophils 5.4 10^3/uL (1.5-7.6); ABS Nucleated RBC 0.01 10^3/ul; Eosinophil % 1.2 %; Hematocrit 39.6 % (35-45); Hemoglobin 13.4 g/dL (11.5-14.3); Mean Corpuscular Hemoglobin 30.5 pg (27-33); Mean Corpuscular Hgb Conc 33.9 g/dL (31-36); Mean Corpuscular Volume 89.9 fL (80-97); Mean Platelet Volume 7.9 fL (7.5-11.2); Nucleated Red Blood Cells % 0.2 /100 WBC (0.0-0.4); Platelet Count 137 10^3/uL (150-450); Red Cell Distribution Width 16.7 % (12-17)
[2022-12-22 10:57] LABS: Albumin 3.1 g/dL (3.2-5.2); Albumin/Globulin Ratio 1.2 (1-3); Calcium 8.7 mg/dL (8.6-10.3); Creatinine, Serum 0.75 mg/dL (0.51-0.95); Globulin 2.6 g/dL (2-4); Potassium 4.3 mmol/L (3.5-5.0); Total Bilirubin 0.4 mg/dL (0.2-1.0); Total Protein 5.7 g/dL (6.4-8.9)
[2022-12-22 12:14] LABS: High Sensitivity Troponin 1 Hr 3 pg/mL (<15)
[2022-12-22 16:03] LABS: Urine Appearance Cloudy; Urine Bilirubin Negative (Negative); Urine Blood Negative (Negative); Urine Color Yellow; Urine Glucose Negative (Negative); Urine Ketones 1+ (Negative); Urine Nitrite Negative (Negative); Urine Protein 1+(30 mg/dL) (Negative); Urine Urobilinogen Positive (Negative)
[2022-12-22 16:07] LABS: Urine Bacteria Absent (Absent); Urine Red Blood Cell 3+(>10/hpf) (Absent); Urine Squamous Epithelial Cell Present (Absent); Urine White Blood Cell 3+(>20/hpf) (Absent)
[2022-12-22] MEDS ORDERED: Lactated Ringers 1000 ml BAG 1,000 ML IV ONE (17:06)
[2022-12-22] MEDS ORDERED: cefTRIAXone 1 gm/50 mL D5W 1 GM/50 ML BAG IV ONE (17:07)
[2022-12-22] MEDS ORDERED: Albuterol HFA INHALER 8 gm MDI INH PRN (18:48)
[2022-12-22] MEDS: Enoxaparin 40 MG/0.4 ML SYR SUBCUT SCH (19:35)
[2022-12-22] MEDS: Mometasone/Formoter 200/5 MDI INH SCH (19:35)
[2022-12-22] MEDS: DULoxetine DR 30 mg CAP PO SCH (20:52)
[2022-12-23] MEDS ORDERED: EUCERIN TOPICAL PRN (01:08)
[2022-12-23 06:12] LABS: Hematocrit 37.4 % (35-45); Hemoglobin 12.7 g/dL (11.5-14.3); Mean Corpuscular Hemoglobin 30.2 pg (27-33); Mean Corpuscular Volume 88.8 fL (80-97); Mean Platelet Volume 8.2 fL (7.5-11.2); Platelet Count 141 10^3/uL (150-450); Red Blood Count 4.21 10^6/uL (3.63-4.92); Red Cell Distribution Width 16.5 % (12-17); White Blood Count 8.9 10^3/uL (3.8-11.8)
[2022-12-23 06:38] LABS: Calcium 8.5 mg/dL (8.6-10.3); Creatinine, Serum 0.55 mg/dL (0.51-0.95); Magnesium 1.6 mg/dL (1.9-2.7); Potassium 3.9 mmol/L (3.5-5.0); eGFR CKD-EPI 95.5 (>60)
[2022-12-23] MEDS: Mometasone/Formoter 200/5 MDI INH SCH ×2 (08:19→19:19)
[2022-12-23 08:33] LABS: ABS Basophils 0.1 10^3/uL (0.0-0.1); ABS Eosinophils 0.2 10^3/uL (0.0-0.5); ABS Lymphocytes 1.8 10^3/uL (1.0-4.8); ABS Monocytes 1.7 10^3/uL (0.0-0.9); ABS Neutrophils 5.1 10^3/uL (1.5-7.6); Lymphocyte % 20.6 %
[2022-12-23] MEDS ORDERED: Magnesium Sulf 4 GM/100 ML IV 4,000 MG/100 ML BAG IVPB ONE (09:04)
[2022-12-23] MEDS: DULoxetine DR 30 mg CAP PO SCH ×2 (10:20→21:45)
[2022-12-23] MEDS: Lidocaine PATCH 4% TOPICAL SCH (10:20)
[2022-12-23] MEDS: Enoxaparin 40 MG/0.4 ML SYR SUBCUT SCH (17:36)
[2022-12-23] MEDS ORDERED: cefTRIAXone 1 gm/50 mL D5W 1 GM/50 ML BAG IV SCH (18:00)
[2022-12-24 06:07] LABS: Hematocrit 37.8 % (35-45); Hemoglobin 12.9 g/dL (11.5-14.3); Mean Corpuscular Hemoglobin 30.3 pg (27-33); Mean Corpuscular Hgb Conc 34.1 g/dL (31-36); Mean Corpuscular Volume 88.8 fL (80-97); Mean Platelet Volume 8.1 fL (7.5-11.2); Platelet Count 153 10^3/uL (150-450); Red Blood Count 4.25 10^6/uL (3.63-4.92); Red Cell Distribution Width 16.5 % (12-17); White Blood Count 7.6 10^3/uL (3.8-11.8)
[2022-12-24 06:27] LABS: Calcium 8.1 mg/dL (8.6-10.3); Creatinine, Serum 0.59 mg/dL (0.51-0.95); Magnesium 2.2 mg/dL (1.9-2.7); Potassium 3.7 mmol/L (3.5-5.0); eGFR CKD-EPI 93.9 (>60)
[2022-12-24 06:34] LABS: ABS Basophils 0.1 10^3/uL (0.0-0.1); ABS Eosinophils 0.2 10^3/uL (0.0-0.5); ABS Lymphocytes 2.8 10^3/uL (1.0-4.8); ABS Monocytes 1.6 10^3/uL (0.0-0.9); Eosinophil % 3.2 %; Lymphocyte % 36.5 %
[2022-12-24] MEDS: Mometasone/Formoter 200/5 MDI INH SCH (07:21)
[2022-12-24] MEDS: DULoxetine DR 30 mg CAP PO SCH (09:17)
[2022-12-24] MEDS: Lidocaine PATCH 4% TOPICAL SCH (09:23)
[2022-12-24 13:56] VITALS: BP 120/71
== END 2022-12-24 16:07 | disposition swing bed (61) ==
LOC: EDHOLD 08:09 → ED 08:09 → SUATTDRO 17:36 → MED 21:03
PROVIDERS: ADMIT Internal Medicine; ATTEND Internal Medicine

== ENCOUNTER 2022-12-24 16:07 | Inpatient (IN) ==
[2022-12-24] MEDS ORDERED: Albuterol HFA INHALER 8 gm MDI INH PRN (16:33)
[2022-12-24] MEDS ORDERED: NON FORMULARY MED (Acetaminophen 650 mg Tablet Extended Release) PO PRN (16:33)
[2022-12-24] MEDS ORDERED: MOISTURIZING TOPICAL PRN (17:27)
[2022-12-24] MEDS: Enoxaparin 40 MG/0.4 ML SYR SUBCUT SCH (17:30)
[2022-12-24] MEDS: Mometasone/Formoter 200/5 MDI INH SCH (19:20)
[2022-12-24] MEDS: DULoxetine DR 30 mg CAP PO SCH (21:28)
[2022-12-24] MEDS: EUCERIN TOPICAL PRN (22:34)
[2022-12-25] MEDS: EUCERIN TOPICAL PRN (08:03)
[2022-12-25] MEDS: Lidocaine PATCH 4% TOPICAL SCH (08:04)
[2022-12-25] MEDS: DULoxetine DR 30 mg CAP PO SCH ×2 (08:06→20:14)
[2022-12-25] MEDS: Mometasone/Formoter 200/5 MDI INH SCH ×2 (08:18→19:24)
[2022-12-25] MEDS: Polyethylene Glycol 3350 17 GM PACKET PO PRN (12:08)
[2022-12-25] MEDS: Enoxaparin 40 MG/0.4 ML SYR SUBCUT SCH (16:54)
[2022-12-25] MEDS: Senna TAB 8.6 mg TAB PO PRN (20:13)
[2022-12-26] MEDS: Mometasone/Formoter 200/5 MDI INH SCH ×2 (07:16→20:11)
[2022-12-26] MEDS: DULoxetine DR 30 mg CAP PO SCH ×2 (08:15→20:12)
[2022-12-26] MEDS: Lidocaine PATCH 4% TOPICAL SCH (08:16)
[2022-12-26] MEDS: Polyethylene Glycol 3350 17 GM PACKET PO PRN (08:45)
[2022-12-26] MEDS: Magnesium Hydroxide LIQ 30 ML UDC PO PRN (15:59)
[2022-12-26] MEDS: Enoxaparin 40 MG/0.4 ML SYR SUBCUT SCH (15:59)
[2022-12-26] MEDS: Senna TAB 8.6 mg TAB PO PRN (20:12)
[2022-12-27] MEDS: Mometasone/Formoter 200/5 MDI INH SCH ×2 (07:39→19:20)
[2022-12-27] MEDS: DULoxetine DR 30 mg CAP PO SCH ×2 (09:39→20:41)
[2022-12-27] MEDS: Lidocaine PATCH 4% TOPICAL SCH (09:42)
[2022-12-27] MEDS: Enoxaparin 40 MG/0.4 ML SYR SUBCUT SCH (18:10)
[2022-12-27] MEDS: Senna TAB 8.6 mg TAB PO PRN (21:00)
[2022-12-27] MEDS: Magnesium Hydroxide LIQ 30 ML UDC PO PRN (21:01)
[2022-12-28] MEDS: Mometasone/Formoter 200/5 MDI INH SCH (07:32)
[2022-12-28] MEDS: DULoxetine DR 30 mg CAP PO SCH (07:57)
[2022-12-28] MEDS: Lidocaine PATCH 4% TOPICAL SCH (08:02)
[2022-12-28 13:21] VITALS: BP 112/71
== END 2022-12-28 14:45 | DRG 690 ==
LOC: MED 16:07 → SUATTDRO 16:07
PROVIDERS: ADMIT Internal Medicine; ATTEND Hospitalist